=== PATIENT | female | born 1940 | race Caucasian/White ===

== ENCOUNTER → 2021-08-03 09:20 | Outpatient (BNVA) | payer MEDICARE, SELFPAY | PROVIDERS: PCP Nurse Practitioner Family; Visit Provider Internal Medicine Pulmonary Disease | DX: R06.00 Dyspnea, unspecified (principal); I27.22 Pulmonary hypertension due to left heart disease; I48.20 Chronic atrial fibrillation, unspecified; I50.33 Acute on chronic diastolic (congestive) heart failure; I10 Essential (primary) hypertension; M25.641 Stiffness of right hand, not elsewhere classified; M25.642 Stiffness of left hand, not elsewhere classified; J84.9 Interstitial pulmonary disease, unspecified; Z99.81 Dependence on supplemental oxygen; E78.5 Hyperlipidemia, unspecified | CPT/HCPCS: 36415; 73130; 85651; 86225; 86235; 99214 ==

== ENCOUNTER 2021-08-22 07:54 | Inpatient (IN) | payer MEDICARE, SELFPAY ==
[2021-08-22] VITALS (29 sets, daily range): BP systolic 102–146; BP diastolic 61–90; PULSE 72–126; RESP 18–33; TEMP 36.6; O2SAT 84–97
--- NOTE | 2021-08-22 08:03 | XRR_ITS ---
PROCEDURE INFORMATION: Exam: XR Chest Exam date and time: 08/22/2021 8:14 AM Age: 81 years old Clinical indication: Shortness of breath. TECHNIQUE: Imaging protocol: Radiologic exam of the chest. Views: 1 view. COMPARISON: No relevant prior studies available. FINDINGS: Lungs: There are patchy opacities in the mid and lower right chest suspicious for pneumonia. Possible retrocardiac opacity at the left base. Pleural spaces: No definite pleural effusion. No pneumothorax. Heart/Mediastinum: The heart is enlarged. No gross evidence of pneumomediastinum. Diaphragm: Lucent region over the lower left chest may reflect abdominal contents and undulating diaphragm. A loculated subpulmonic pneumothorax is considered less likely. Bones/joints: Prominent rightward curvature of thoracic spine. No gross fracture. XR/XR chest 1V portable [id number] IMPRESSION: 1. Patchy opacities in the mid and lower right chest suspicious for pneumonia. Possible retrocardiac opacity at the left base. 2. Lucent region over the lower left chest may reflect abdominal contents and undulating diaphragm. A loculated subpulmonic pneumothorax is considered less likely. 3. Cardiomegaly. 4. Recommend CT chest to further assess.
--- NOTE | 2021-08-22 08:04 | ED_ITS ---
HPI - SOB/Dyspnea General: Chief Complaint: Shortness of Breath/Dyspnea Stated Complaint: SOB Time Seen by Provider: 08/22/21 07:57 History of Present Illness: HPI Narrative: 81-year-old with history of CHF presents with shortness of breath. She is most been 4 to 5 L by nasal cannula normally. Upon EMS arrival was desaturating on this and rBiPAP. She denies any chest pain. Does report bilateral lower extremity swelling. Review of Systems Narrative: - CONSTITUTIONAL: Denies weight loss, fever and chills. - HEENT: Denies changes in vision and hearing. - RESPIRATORY: As above - CV: Denies palpitations and CP. - GI: Denies abdominal pain, nausea, vomiting and diarrhea. - : Denies dysuria and urinary frequency. - MSK: Denies myalgia and joint pain. - SKIN: Denies rash and pruritus. - NEUROLOGICAL: Denies headache, weakness, numbness and syncope. - PSYCHIATRIC: Denies suicidal ideation [facility] ED PFSH: Medical History Benign hypertension CHF (congestive heart failure) Chronic atrial fibrillation Hyperlipidemia Venous insufficiency Family History Father Cancer Sister Cancer Dementia Hypertension Brother Dementia Hypertension Son Hypertension Daughter Hypertension Denies family history of Diabetes CAD (coronary artery disease) Clotting disorder Hyperlipidemia Psychiatric illness Chronic kidney disease (CKD) Suicide Anesthesia complication Bleeding disorder Family history of premature coronary artery disease Lung disease Stroke Social History Smoking and tobacco status: never smoked Alcohol intake: never Physical Exam Narrative: EXAM NARRATIVE: - GENERAL: Alert and oriented x 3. No acute distress. Well-nourished. - EYES: EOMI. Anicteric. - HENT: Atraumatic, no C-spine tenderness. Moist mucous membranes. No scleral icterus. No cervical lymphadenopathy. - LUNGS: On BiPAP, bilateral wheezes and crackles No accessory muscle use. Equal lung sounds bilaterally. No respiratory distress. - CARDIOVASCULAR: Regular rate and rhythm. No murmur. No JVD. - ABDOMEN: Soft, non-tender and non-distended. Negative CVA tenderness bi laterally, no rebound or guarding, negative Devine sign. No palpable masses. - EXTREMITIES: +1 bilateral lower extremity edema. Non-tender. - SKIN: No rashes or lesions. Warm. - NEUROLOGIC: No meningismus or focal neurological deficits. CN II-XII grossly intact. - PSYCHIATRIC: Cooperative. Appropriate mood and affect. Course Vital Signs: Vital signs: Vital Signs Temperature 97.9 F 08/22/21 08:14 Pulse Rate 97 08/22/21 11:30 Respiratory Rate 29 H 08/22/21 11:27 Blood Pressure 118/64 08/22/21 11:27 Pulse Oximetry 92 08/22/21 11:30 MDM - SOB/Dyspnea Medical Decision Making 81-year-old presents due to shortness of breath. 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 Provided with albuterol steroids and Lasix with some improvement. Initial x-ray is concerning for possible pneumothorax versus abdominal contents in the abdomen however CT scan does not reveal either of days. There is however significant amount of pulmonary edema. Patient is saturating well on BiPAP. BNP is elevated. EKG and troponin do not reveal any sign of acute ischemia or other acute abnormality. Remainder of lab work unremarkable. CT scan also revealed some pulmonary renal masses for which follow-up was recommended. Remainder of lab work and imaging reviewed. Discussed with hospitalist and they agreed patient would benefit from admission. Patient admitted in stable con dition. Further evaluation management per hospitalist team. Lab Data : 08/22/21 09:11 08/22/21 09:45 Labs/Radiology: Radiology Impressions Chest X-Ray 08/22/21 08:03 IMPRESSION: 1. Patchy opacities in the mid and lower right chest suspicious for pneumonia. Possible retrocardiac opacity at the left base. 2. Lucent region over the lower left chest may reflect abdominal contents and undulating diaphragm. A loculated subpulmonic pneumothorax is considered less likely. 3. Cardiomegaly. 4. Recommend CT chest to further assess. ADDENDUM: 08/22/21913 Findings discussed with Karthik Munoz at 08/22/2021 9:11 AM CDT. Chest CTA 08/22/21 09:12 IMPRESSION: 1. No pulmonary embolus. 2. Extensive ground-glass opacity in the chest bilaterally most prominent in the mid to lower chest with a few regions of more confluent airspace opacity. There is interlobular septal thickening. Considerations include pulmonary edema, interstitial lung disease or, possibly, pneumonia (including COVID 19 pneumonia). Favor pulmonary edema. 3. Cardiomegaly with small bilateral pleural effusions and coronary artery disease. 4. Mediastinal and bilateral hilar lymphadenopathy. 5. Solid pulmonary nodules measure up to 5.7 mm. As per Fleischner Society 2017 guidelines for follow-up and management of pulmonary nodules: For patients at low risk (minimal or absent history of smoking and of other known risk factors), no routine follow-up. For patient at high risk (history of smoking or of other known risk factors), recommend optional CT at 12 months. 6. Cholelithiasis without definite gallbladder wall thickening. Possible stone in the distal common bile duct measuring 3.5 mm. The common bile duct appears mildly dilated measuring 6.6 mm. Recommend ultrasound of clinically warranted. 7. Indeterminate left renal mass. Recommend nonemergent MRI of the abdomen renal mass protocol with and without contrast to further assess. 8. Coarse calcifications within the proximal abdominal aorta with at least 50% narrowing. The aorta is not opacified. Laboratory Results WBC 10.5 10^3/uL (4.0-10.0) H 08/22/21 09:11 RBC 4.57 10^6/uL (4.1-5.3) 08/22/21 09:11 Hgb 13.5 g/dL (11.5-15.3) 08/22/21 09:11 Hct 39.1 % (37.0-47.0) 08/22/21 09:11 MCV 85.6 fl (81-99) 08/22/21 09:11 MCH 29.5 pg (28.0-34.0) 08/22/21 09:11 MCHC 34.5 g/dL (30.0-36.0) 08/22/21 09:11 RDW 15.3 % (12.1-15.1) H 08/22/21 09:11 Plt Count 310 10^3/cmm (130-400) 08/22/21 09:11 MPV 8.7 fL (7.4-10.4) 08/22/21 09:11 Neut % (Auto) 83.0 % 08/22/21 09:11 Lymph % (Auto) 7.9 % 08/22/21 09:11 Alpine % (Auto) 7.1 % 08/22/21 09:11 Eos % (Auto) 0.7 % 08/22/21 09:11 Baso % (Auto) 0.9 % 08/22/21 09:11 Neut # (Auto) 8.76 10^3/uL (1.8-7.7) H 08/22/21 09:11 Lymph # (Auto) 0.8 10^3/uL (0.8-4.8) 08/22/21 09:11 Alpine # (Auto) 0.8 10^3/uL (0.2-0.9) 08/22/21 09:11 Eos # (Auto) 0.1 10^3/uL (0.0-0.8) 08/22/21 09:11 Baso # (Auto) 0.1 10^3/uL (0.0-0.1) 08/22/21 09:11 Nucleated RBC % (auto) 0 % 08/22/21 09:11 Nucleated RBCs # 0.0 /100WBC 08/22/21 09:11 D-Dimer 0.46 ug/mIFEU (0-0.59) 08/22/21 09:45 Specimen Type Arterial 08/22/21 08:15 Sample Site Radial, left 08/22/21 08:15 ABG pH 7.50 (7.35-7.45) H 08/22/21 08:15 ABG pCO2 30.3 mmHg (35-45) L 08/22/21 08:15 ABG pO2 89.5 mmHg (80.0-100.0) 08/22/21 08:15 ABG HCO3 23.5 mmol/L (22-26) 08/22/21 08:15 ABG O2 Saturation 98.5 08/22/21 08:15 ABG Base Excess 1.1 mmol/L (-2.0-2.0) 08/22/21 08:15 Aung Test Pos 08/22/21 08:15 A-a O2 Gradient 38.8 mmHg (5-10) H 08/22/21 08:15 Hematocrit 42.3 % (37-47) 08/22/21 08:15 Hgb O2 Saturation 97.5 % (95-100) 08/22/21 08:15 Carboxyhemoglobin 1.0 %THgb (0.4-20.1) 08/22/21 08:15 Methemoglobin 0.0 % (0.4-1.5) L 08/22/21 08:15 Total Hemoglobin 13.8 g/dL (12-16) 08/22/21 08:15 Sodium 144.0 mmol/L (131-143) H 08/22/21 08:15 Potassium 3.7 mmol/L (3.5-5.0) 08/22/21 08:15 Glucose 121.0 mg/dL (70-115) H 08/22/21 08:15 Ionized Calcium 1.2 mmol/L (1.1-1.4) 08/22/21 08:15 O2 Delivery Device Bipap 08/22/21 08:15 FiO2 60.0 % 08/22/21 08:15 Epic Cadence Analyst ID Cak 08/22/21 08:15 Sodium 140 mmol/L (136-145) 08/22/21 09:45 Potassium 3.5 mmol/L (3.5-5.1) 08/22/21 09:45 Chloride 102 mmol/L (98-107) 08/22/21 09:45 Carbon Dioxide 25 mmol/L (22-29) 08/22/21 09:45 Anion Gap 16.5 (5-19) 08/22/21 09:45 BUN 11 mg/dL (8-23) 08/22/21 09:45 Creatinine 0.8 mg/dL (0.5-0.9) 08/22/21 09:45 GFR Calculation Not Reportable 08/22/21 09:45 Glucose 123 mg/dL (65-115) H 08/22/21 09:45 Calculated Osmolality 291 mOsm/kg (285-295) 08/22/21 09:45 Calcium 8.6 mg/dL (8.5-10.5) 08/22/21 09:45 Total Bilirubin 0.7 mg/dL (0.15-1.2) 08/22/21 09:45 AST 11 U/L (0-32) 08/22/21 09:45 ALT 8 U/L (0-33) 08/22/21 09:45 Alkaline Phosphatase 112 IU/L (35-105) H 08/22/21 09:45 Troponin T Baseline 14 ng/L (0-10) H 08/22/21 09:45 NT-Pro-B Natriuret Pep 2132 pg/mL (0-450) H 08/22/21 09:45 Total Protein 7.0 g/dL (6.6-8.7) 08/22/21 09:45 Albumin 3.7 g/dL (3.5-5.2) 08/22/21 09:45 Globulin 3.3 g/dL (1.3-4.6) 08/22/21 09:45 SARS-CoV-2 Ag (Rapid) Negative (Negative) 08/22/21 08:39 EKG Data EKG 1: Other EKG Comments: A. fib with RVR, rate of 116, no sign of acute ischemia or other acute abnormality. Discharge Plan Discharge Condition: Stable Prescriptions: No Action losartan 25 mg tablet 25 mg PO DAILY 0RF Eliquis 5 mg tablet 5 mg PO BID 0RF atorvastatin 10 mg tablet 10 mg PO DAILY 0RF furosemide 40 mg tablet 40 mg PO BID 0RF potassium chloride 10 mEq capsule, extended release 10 meq PO BID 0RF diltiazem HCl [Tiazac] 180 mg capsule,extended release 24 hr 180 mg PO BID Qty: 180 3RF metoprolol succinate 25 mg tablet extended release 24 hr 25 mg PO DAILY Qty: 90 3RF Mucinex Fast-Max Chest-Congest 100 mg/5 mL Liquid 200 mg PO Q4H PRN (Reason: Congestion) 0RF garlic 500 mg Capsule 500 mg PO DAILY 0RF ferrous sulfate 325 mg (65 mg iron) tablet 325 mg PO BID 0RF Women's Probiotic 25B cell-25B cell-50 mg Capsule 1 cap PO DAILY 0RF Referrals: Elis Julian [Primary Care Provider] - Coding Level of Care Code ED Safety Counselor for Chg Xander
--- NOTE | 2021-08-22 08:04 | ECG_ITS ---
[facility] Test Date: 2021-08-22 Pat Name: Karyn Nieto Department: Room: Gender: Female Business Change Manager: : 1940 Requested By: Karthik Munoz Order Number: [id number] Flaca MD: Filemon Collazo M.D. Measurements Intervals [place] Rate: 116 P: [place]: QRS: -25 QRSD: 90 T: 150 QT: 312 QTc: 434 Interpretive Statements ATRIAL FIBRILLATION WITH RAPID VENTRICULAR RESPONSE VOLTAGE CRITERIA FOR LVH [MEETS CRITERIA IN ONE OF: R(aVL), S(V1), R(V5), R(V5/V6)+S(V1)] POSSIBLE ANTERIOR MYOCARDIAL INFARCTION , PROBABLY OLD [30 ms Q WAVE IN V3/V4, OR R < 0.2 mV IN V4] MODERATE T-WAVE ABNORMALITY, CONSIDER LATERAL ISCHEMIA [-0.1+ mV T-WAVE IN I/aVL/V5/V6] No previous ECG available for comparison Electronically Signed On 08-22-2021 12:26:50 CDT by Filemon Collazo M.D. [id number]
--- NOTE | 2021-08-22 08:10 | PC.NURSE ---
PT PLACED ON CONTINUOUS NIBP, SPO2, AND CM
[2021-08-22] MEDS: ipratropium-albuterol 3 mL Neb INHALATION ×3 (08:14→20:46)
[2021-08-22 08:27] LABS: ABG PCO2 30.3 mmHg (35-45); Alveolar-Arterial Oxygen Gradi 38.8 mmHg (5-10); Arterial Blood Gas Hematocrit 42.3 % (37-47); Base Excess ABG 1.1 mmol/L (-2.0-2.0); Blood Gas Allen Test Pos; Blood Gas Operator Identificat CAK; Blood Gas Sample Site Radial, left; Blood Gas Sample Type Arterial; HCO3 ABG 23.5 mmol/L (22-26); HGB O2 Sat 97.5 % (95-100); Ionized Calcium Level - ABG 1.2 mmol/L (1.1-1.4); Oxygen Device BIPAP; Oxygen Saturation ABG 98.5; PO2 ABG 89.5 mmHg (80.0-100.0); Potassium Level - ABG 3.7 mmol/L (3.5-5.0); Total Hemoglobin 13.8 g/dL (12-16)
[2021-08-22] MEDS: dilTIAZem 5 mg/mL SDV 5 mL 20 MG IVP (08:27)
[2021-08-22 09:06] LABS: SARS Covid-2 Antigen Negative (Negative)
--- NOTE | 2021-08-22 09:12 | CTR_ITS ---
PROCEDURE INFORMATION: Exam: CTA Chest With Contrast Exam date and time: 08/22/2021 11:13 AM Age: 81 years old Clinical indication: Shortness of breath. Pneumothorax versus abdominal contents in the chest cavity. TECHNIQUE: Imaging protocol: Computed tomographic angiography of the chest with contrast. 3D rendering (Not supervised by radiologist): MIP and/or 3D reconstructed images were created by the technologist. Radiation optimization: All CT scans at this facility use at least one of these dose optimization techniques: automated exposure control; mA and/or kV adjustment per patient size (includes targeted exams where dose is matched to clinical indication); or iterative reconstruction. Contrast material: OMNI 350; Contrast volume: 73 ml; Contrast route: INTRAVENOUS (IV); COMPARISON: CR (CHEST, ) 08/22/2021 8:14 AM RADIATION DOSE METRICS: Total DLP (mGy-cm): 507.14 FINDINGS: Pulmonary arteries: No pulmonary embolus. Aorta: No thoracic aortic aneurysm. Lungs: There is extensive ground-glass opacity in the chest bilaterally most prominent in the mid to lower chest with a few regions of more confluent airspace opacity. There is interlobular septal thickening. Considerations include pulmonary edema, interstitial lung disease or, possibly, pneumonia (including COVID 19 pneumonia). Solid pulmonary nodule in the right middle lobe measuring 4 mm (image 207). Solid pulmonary nodule in the right middle lobe measuring 5.7 mm (image 199). Pleural spaces: Small bilateral pleural effusions. No pneumothorax. Heart: The heart is enlarged. Coronary arterial calcifications are noted. No pericardial effusion. Lymph nodes: A right pretracheal lymph node measures 1.6 x 2.3 cm. A left pretracheal lymph node measures 1.4 x 1.1 cm. A left hilar lymph node measures 1.4 x 2.9 cm. A right hilar lymph node measures 1.5 x 2.2 cm. Diaphragm: No hiatal hernia. Gallbladder and bile ducts: Cholelithiasis without definite gallbladder wall thickening. Possible stone in the distal common bile duct measuring 3.5 mm. The common bile duct appears mildly dilated measuring 6.6 mm. Recommend ultrasound of clinically warranted. Indeterminate left renal mass measuring 2.5 x 4.3 cm. There are coarse calcifications within the proximal abdominal aorta with at least 50% narrowing. The aorta is not opacified. Bones/joints: Prominent rightward curvature of the thoracolumbar spine. No acute fracture is identified. Soft tissues: No significant subcutaneous soft tissue swelling CT/CT angio chest PE protcl [id number] IMPRESSION: 1. No pulmonary embolus. 2. Extensive ground-glass opacity in the chest bilaterally most prominent in the mid to lower chest with a few regions of more confluent airspace opacity. There is interlobular septal thickening. Considerations include pulmonary edema, interstitial lung disease or, possibly, pneumonia (including COVID 19 pneumonia). Favor pulmonary edema. 3. Cardiomegaly with small bilateral pleural effusions and coronary artery disease. 4. Mediastinal and bilateral hilar lymphadenopathy. 5. Solid pulmonary nodules measure up to 5.7 mm. As per Fleischner Society 2017 guidelines for follow-up and management of pulmonary nodules: For patients at low risk (minimal or absent history of smoking and of other known risk factors), no routine follow-up. For patient at high risk (history of smoking or of other known risk factors), recommend optional CT at 12 months. 6. Cholelithiasis without definite gallbladder wall thickening. Possible stone in the distal common bile duct measuring 3.5 mm. The common bile duct appears mildly dilated measuring 6.6 mm. Recommend ultrasound of clinically warranted. 7. Indeterminate left renal mass. Recommend nonemergent MRI of the abdomen renal mass protocol with and without contrast to further assess. 8. Coarse calcifications within the proximal abdominal aorta with at least 50% narrowing. The aorta is not opacified.
[2021-08-22 09:14] LABS: Basophils # 0.1 10^3/uL (0.0-0.1); Basophils % 0.9 %; Eosinophils # 0.1 10^3/uL (0.0-0.8); Eosinophils % 0.7 %; Hematocrit 39.1 % (37.0-47.0); Hemoglobin 13.5 g/dL (11.5-15.3); Lymphocytes # 0.8 10^3/uL (0.8-4.8); Lymphocytes % 7.9 %; Mean Corpuscular HGB Conc 34.5 g/dL (30.0-36.0); Mean Corpuscular Hemoglobin 29.5 pg (28.0-34.0); Mean Corpuscular Volume 85.6 fl (81-99); Mean Platelet Volume 8.7 fL (7.4-10.4); Monocytes # 0.8 10^3/uL (0.2-0.9); Monocytes % 7.1 %; Neutrophils # 8.76 10^3/uL (1.8-7.7); Nucleated Red Blood Cells % 0 %; Platelet Count 310 10^3/cmm (130-400); Red Blood Count 4.57 10^6/uL (4.1-5.3); Red Cell Distribution Width 15.3 % (12.1-15.1); White Blood Count 10.5 10^3/uL (4.0-10.0)
[2021-08-22 10:23] LABS: D Dimer 0.46 ug/mIFEU (0-0.59)
[2021-08-22 10:31] LABS: Troponin(5th) Baseline 14 ng/L (0-10)
[2021-08-22 10:34] LABS: Alanine Aminotransferase 8 U/L (0-33); Albumin Level 3.7 g/dL (3.5-5.2); Alkaline Phosphatase 112 IU/L (35-105); Anion Gap 16.5 (5-19); Aspartate Amino Transferase 11 U/L (0-32); Blood Urea Nitrogen 11 mg/dL (8-23); Calcium 8.6 mg/dL (8.5-10.5); Carbon Dioxide 25 mmol/L (22-29); Chloride 102 mmol/L (98-107); Globulin 3.3 g/dL (1.3-4.6); Glucose 123 mg/dL (65-115); NT Pro B Type Natriuretic Pept 2132 pg/mL (0-450); Osmolality Calculated 291 mOsm/kg (285-295); Potassium 3.5 mmol/L (3.5-5.1); Sodium 140 mmol/L (136-145); Total Bilirubin 0.7 mg/dL (0.15-1.2)
[2021-08-22] MEDS: iohexol 350 mg/mL 100 mL Btl IV (11:17)
[2021-08-22] MEDS: FUROsemide 10 mg/mL SDV 4mL 40 MG IVP ×2 (11:53→22:02)
--- NOTE | 2021-08-22 12:45 | PC.NURSE ---
ADMITTING PHYSICIAN GAVE VERBAL ORDERS TO SKIP 1240 40MG DOSE OF FUROSEMIDE DUE TO PRIOR ADMINISTRATION OF SAME DOSE AT 1150
--- NOTE | 2021-08-22 13:11 | P.HP_ITS ---
Providers/Chief Complaint Primary Care Provider: Elis Julian Chief Complaint: SOB History of Present Illness Karyn Nieto is a 81 year old female with past medical history of group 2 pulmonary hypertension, diastolic congestive heart failure, chronic hypoxic respiratory failure, on home 4 L oxygen, atrial fibrillation, hyperlipidemia who follows up with cardiology and pulmonology as an outpatient came from home today because of worsening shortness of breath since yesterday. As per patient's daughter her oxygen requirements have been going up for last 2 days. Yesterday she required up to 6 L. Today she was not able to control her breath even on 6 L so she came to the ER. Family denies any changes in medications, sick contac ts. States mild cough. Have not noticed any palpitations at home. Denies any chest pain. In the ER was found to be in atrial fibrillation with rapid ventricular response along with hypoxia for which she was placed on a BiPAP. Examination patient is awake and alert, sitting up comfortably in bed on BiPAP with heart rate running in 130s, saturating more than 92%. Review of Systems General: Reports: ROS unobtainable due to medical condition Medications/Allergies Home Medications Medication Instructions Recorded Confirmed Last Taken Type apixaban 5 mg tablet (Eliquis) 5 mg PO BID 05/08/19 08/22/21 08/21/21 History atorvastatin 10 mg tablet 10 mg PO DAILY tab 05/08/19 08/22/21 08/21/21 History losartan 25 mg tablet 25 mg PO DAILY 05/08/19 08/22/21 08/21/21 History diltiazem HCl 180 mg capsule,24 180 mg PO BID #180 cap 11/07/19 08/22/21 08/21/21 Rx hr,extended release (Tiazac) furosemide 40 mg tablet 40 mg PO BID tab 11/07/19 08/22/21 08/21/21 History potassium chloride 10 mEq 10 meq PO BID cap 11/07/19 08/22/21 08/21/21 History capsule,extended release metoprolol succinate 25 mg 25 mg PO DAILY #90 tab 09/01/20 08/22/21 08/21/21 Rx tablet,extended release 24 hr Lactobacillus 25 billion 1 cap PO DAILY 08/22/21 08/22/21 08/21/21 History cell-Bifido 25 billion [id number] capsule (Women's Probiotic) ferrous sulfate 325 mg (65 mg 325 mg PO BID 08/22/21 08/22/21 08/21/21 History iron) tablet garlic 500 mg capsule 500 mg PO DAILY 08/22/21 08/22/21 08/21/21 History guaifenesin 100 mg/5 mL oral 200 mg PO Q4H PRN 08/22/21 08/22/21 08/21/21 History liquid (Mucinex Fast-Max Chest Congestion) Allergies Allergy/AdvReac Type Severity Reaction Status Date / Time No Known Allergies Allergy Verified 08/22/21 09:38 PFSH Acute PFSH: Medical History (Updated 08/22/21 @ 13:14 by Lon Floyd MD) Benign hypertension CHF (congestive heart failure) Chronic atrial fibrillation Hyperlipidemia Respiratory failure Stiffness of joints of both hands Venous insufficiency World Health Organization group 2 pulmonary arterial hypertension Family History Father Cancer Sister Cancer Dementia Hypertension Brother Dementia Hypertension Son Hypertension Daughter Hypertension Denies family history of Diabetes CAD (coronary artery disease) Clotting disorder Hyperlipidemia Psychiatric illness Chronic kidney disease (CKD) Suicide Anesthesia complication Bleeding disorder Family history of premature coronary artery disease Lung disease Stroke Social History Smoking and tobacco status: never smoked Alcohol intake: never Vitals/I&O/Wt Last Vital Signs Temp 97.9 F 08/22/21 08:14 Pulse 97 08/22/21 11:30 Resp 29 H 08/22/21 11:27 BP 118/64 08/22/21 11:27 Pulse Ox 92 08/22/21 11:30 Physical Exam Narrative: General: No acute distress, AO x3, on BiPAP ventilation HEENT: PERRLA, pupils bilaterally equal and reactive Chest: Bilateral bronchial breath sounds over the lung beckman, fine crackles present bilaterally lower zone, occasional rhonchi over the lung field equal good air entry bilaterally CVS: S1-S2 r irregularly irregular, pansystolic murmur at fourth intercostal parasternal left, tachycardia, elevated JVD, no gallops, no rubs Abdomen: Soft, nontender, no organomegaly, bowel sounds present Neuro: No focal deficits, no facial deformity, AO x3, power 5/5 in all limbs Data : 08/22/21 09:11 08/22/21 09:45 A&P Assessment and plan (1) Acute and chronic respiratory failure with hypoxia: Most likely secondary to acute decompensated diastolic heart failure. BiPAP ventilation. Keep saturation over 88%. DuoNebs every 6 hour, budesonide twice daily. Infectious less likely. Check sputum culture, urine Legionella, bacterial antigen, urinalysis, MRSA swab, COVID-19 swab. Hold off on antibiotics for now. Hold off on steroids for now. Status: Acute (2) CHF (congestive heart failure): Cannot find echo in the system. As per pulmonology note last echocardiogram showed diastolic dysfunction, severe TR and pulmonary artery pressures of 65 to 70 mmHg IV Lasix 40 mg twice daily. Strict input output charting, daily weights. Graham catheterization. Fluid restriction up to 1500 cc. Echocardiogram. Cycle troponins Status: Acute Qualifiers: Heart failure type: diastolic Heart failure chronicity: acute on chronic Qualified Code(s): I50.33 - Acute on chronic diastolic (congestive) heart failure (3) Atrial fibrillation with rapid ventricular response: Currently rapid ventricular response. Start on Cardizem drip. Which to oral Cardizem 30 mg every 6 hourly for now. Will try to wean Cardizem drip and uptitrate oral Cardizem. Continue with home dose of metoprolol 25 mg succinate daily. Continue with anticoagulation with Eliquis 5 mg twice daily. Status: Acute (4) World Health Organization group 2 pulmonary arterial hypertension: Status: Acute Plan Check iron panel, TSH, vitamin B12, folate, A1c, lipid panel. Hypertension: Goal blood pressure less than 140/90 mmHg Continue with home dose of metoprolol. Hold off on losartan for now. Analgesia: Tylenol as needed Glycemic control: Not needed Nutrition: Cardiac diet, fluid restriction up to 1500 cc CODE STATUS: Discussed in detail with patient and daughter at bedside. DNR/DNI. PUD prophylaxis: Protonix DVT prophylaxis: Eliquis will suffice as DVT prophylaxis Admit to CSU. Attestations Medical Necessity Statement*: Admission for more than 2 midnights for management of acute decompensated diastolic heart failure, A. fib with rapid ventricular response Time Spent in Patient Care: Greater than 35 minutes Coding Level of Care Code Acute Civil Engineering Professional for Azael Fwtian Diagnoses Acute and chronic respiratory failure with hypoxia J96.21 CHF (congestive heart failure) I50.33 Heart failure type: diastolic Heart failure chronicity: acute on chronic Atrial fibrillation with rapid ventricular response I48.91 World Health Organization group 2 pulmonary arterial hypertension I27.22
[2021-08-22] MEDS: dilTIAZem 30 mg Tablet PO (13:36)
[2021-08-22 13:39] LABS: Thyroid Stimulating Hormone 3.93 uIU/mL (0.27-4.20)
[2021-08-22 13:40] LABS: Procalcitonin 0.05 ng/mL (0-0.5)
[2021-08-22 13:54] LABS: Add Urine Culture? Yes; Add Urine Microscopic? YES; Bacteria Urine 4+ /hpf; Bilirubin Urine Neg (Negative); Blood Urine 2+ (Negative); Glucose Urine UA Norm (Normal); Ketones Urine Negative (Negative); Leukocyte Esterase Urine 2+ (Negative); Nitrate Urine Negative (Negative); Protein Urine Neg (Negative); RBC Urine 0-4 /hpf (0-2); Specific Gravity, Urine 1.005 (1.005-1.030); Urine Appearance Hazy (CLEAR); Urine Color Straw (Yellow); Urobilinogen Urine Norm (Negative); WBC Urine 25-40 /hpf (0-5); pH Urine 6.5 (5-7)
[2021-08-22 14:14] LABS: Adenovirus Not Detected (NOT DETECT); Chlamydia Pneumoniae Not Detected (NOT DETECT); Coronavirus 229E,HKU1,NL63,OC4 Not Detected (NOT DETECT); Human Metapneumovirus Not Detected (NOT DETECT); Human Rhinovirus/Enterovirus Not Detected (NOT DETECT); Influenza A Not Detected (NOT DETECT); Influenza A H1 Not Detected (NOT DETECT); Influenza A H1-2009 Not Detected (NOT DETECT); Influenza A H3 Not Detected (NOT DETECT); Influenza B Not Detected (NOT DETECT); Mycoplasma Pneumoniae Not Detected (NOT DETECT); Parainfluenza Virus Type 1 Not Detected (NOT DETECT); Parainfluenza Virus Type 2 Not Detected (NOT DETECT); Parainfluenza Virus Type 3 Not Detected (NOT DETECT); Parainfluenza Virus Type 4 Not Detected (NOT DETECT); Respiratory Syncytial Virus A Not Detected (NOT DETECT); Respiratory Syncytial Virus B Not Detected (NOT DETECT); SARS-COV-2 Not Detected (NOT DETECT)
[2021-08-22] MEDS: cefTRIAXone 1,000 MG in sodium chloride 0.9% (plus) 50 ML 100 MG IV (17:41)
[2021-08-22] MEDS: dilTIAZem 30 mg Tablet 60 MG PO ×2 (17:43→20:55)
[2021-08-22] MEDS: ferrous sulfate EC 325 mg Tablet PO (17:43)
[2021-08-22] MEDS: potassium chloride ER 10 mEq Tablet PO (17:44)
[2021-08-22] MEDS: apixaban 5 mg Tablet PO (17:44)
[2021-08-22] MEDS: budesonide 0.5 mg/2 mL Neb INHALATION (20:46)
[2021-08-23] VITALS (19 sets, daily range): BP systolic 100–138; BP diastolic 54–84; PULSE 63–112; RESP 16–26; TEMP 36.6–36.8; O2SAT 87–98
[2021-08-23] MEDS: ipratropium-albuterol 3 mL Neb INHALATION ×4 (02:32→20:31)
[2021-08-23 04:46] LABS: Basophils % 0.1 %; Hematocrit 36.5 % (37.0-47.0); Hemoglobin 12.4 g/dL (11.5-15.3); Lymphocytes # 0.4 10^3/uL (0.8-4.8); Lymphocytes % 3.6 %; Mean Corpuscular Hemoglobin 28.8 pg (28.0-34.0); Mean Corpuscular Volume 84.7 fl (81-99); Mean Platelet Volume 8.8 fL (7.4-10.4); Monocytes # 0.3 10^3/uL (0.2-0.9); Monocytes % 2.7 %; Neutrophils # 9.25 10^3/uL (1.8-7.7); Neutrophils % 93.2 %; Nucleated Red Blood Cells % 0 %; Platelet Count 303 10^3/cmm (130-400); Red Blood Count 4.31 10^6/uL (4.1-5.3); Red Cell Distribution Width 15.4 % (12.1-15.1); White Blood Count 9.9 10^3/uL (4.0-10.0)
[2021-08-23 05:04] LABS: Alanine Aminotransferase 7 U/L (0-33); Albumin Level 3.6 g/dL (3.5-5.2); Alkaline Phosphatase 93 IU/L (35-105); Anion Gap 15.7 (5-19); Aspartate Amino Transferase 10 U/L (0-32); Blood Urea Nitrogen 13 mg/dL (8-23); Calcium 8.9 mg/dL (8.5-10.5); Carbon Dioxide 25 mmol/L (22-29); Chloride 102 mmol/L (98-107); Cholesterol 82 mg/dL (0-200); Globulin 2.8 g/dL (1.3-4.6); Glucose 164 mg/dL (65-115); HDL Cholesterol 41 mg/dL (60-100); LDL Cholesterol Calculated 34 mg/dL (50-129); Magnesium 2.1 mg/dL (1.7-2.3); Osmolality Calculated 292 mOsm/kg (285-295); Phosphorus 4.6 mg/dL (2.5-4.5); Potassium 3.7 mmol/L (3.5-5.1); Sodium 139 mmol/L (136-145); Total Bilirubin 0.5 mg/dL (0.15-1.2); Total Protein 6.4 g/dL (6.6-8.7); Triglycerides 36 mg/dL (0-150); VLDL Cholestrol Calculation 7 mg/dL (0-30)
[2021-08-23 05:05] LABS: Estmated Average Glucose 114; Hemoglobin A1C 5.6 % (4.0-6.0)
[2021-08-23] MEDS: budesonide 0.5 mg/2 mL Neb INHALATION ×2 (08:22→20:31)
[2021-08-23] MEDS: dilTIAZem 30 mg Tablet 60 MG PO (08:44)
[2021-08-23] MEDS: atorvastatin 40 mg Tablet 20 MG PO (08:45)
[2021-08-23] MEDS: apixaban 5 mg Tablet PO ×2 (08:45→17:46)
[2021-08-23] MEDS: pantoprazole DR 40 mg Tablet PO (08:46)
[2021-08-23] MEDS: ferrous sulfate EC 325 mg Tablet PO ×2 (08:46→17:46)
[2021-08-23] MEDS: potassium chloride ER 10 mEq Tablet PO ×2 (08:46→17:46)
[2021-08-23] MEDS: metoprolol succinate ER (24 HR) 25 mg Tablet PO (08:46)
[2021-08-23] MEDS: dilTIAZem 30 mg Tablet PO (10:25)
[2021-08-23] MEDS: FUROsemide 10 mg/mL SDV 4mL 40 MG IVP ×2 (10:25→22:01)
[2021-08-23] MEDS: dilTIAZem 5 mg/mL SDV 5 mL 10 MG IVP (11:09)
--- NOTE | 2021-08-23 12:31 | USCV_ITS ---
Karyn Nieto Age: 81 Gender: F : 1940 Exam Date: 08/23/2021 15:09 Ordering Phys: Lon Floyd MD Technologist: Angelito Meyer Exam Location: [facility] [place] Indication: chf BP: 95 / 60 HR: 82 Rhythm: Sinus Technical Quality: Adequate MEASUREMENTS (Male / Female) Normal Values 2D ECHO LV Diastolic Diameter PLAX 3.6 cm 4.2 - 5.9 / 3.9 - 5.3 cm LV Systolic Diameter PLAX 2.3 cm IVS Diastolic Thickness 1.1 cm 0.6 - 1.0 / 0.6 - 0.9 cm IVS Systolic Thickness 1.3 cm LVPW Diastolic Thickness 1.0 cm 0.6 - 1.0 / 0.6 - 0.9 cm LVPW Systolic Thickness 1.2 cm LVOT Diameter 2.0 cm LV Ejection Fraction 2D Teich 66.3 % LV Ejection Fraction MOD 2C 78.9 % LV Ejection Fraction 2C AL 79.8 % LA Diameter 4.3 cm Aorta at Sinotubular Diameter 1.8 cm IVC Diameter 2.0 cm M-MODE MV E Point Septal Separation 0.7 cm DOPPLER AV Peak Velocity 119.0 cm/s LVOT Peak Velocity 90.0 cm/s AV Area Cont Eq vti 2.5 cm squared AV Area Cont Eq pk 2.3 cm squared MV Area PHT 5.0 cm squared Mitral E to A Ratio 2.2 MV E' Velocity 81.0 cm/s Mitral E to LV E' Septal Ratio 6.0 TR Peak Velocity 408.3 cm/s TR Peak Gradient 66.7 mmHg TV Peak E Velocity 137.0 cm/s Right Atrial Pressure 3.0 mmHg Pulmonary Artery Systolic Pressu 69.7 mmHg PV Peak Velocity 101.0 cm/s FINDINGS Left Ventricle Normal left ventricular cavity size. Mild to moderate left ventricular hypertrophy. Ejection fraction 70%. Grade 2 diastolic dysfunction. No regional wall motion disturbances. Right Ventricle Normal right ventricular size and systolic function. Moderate to severe pulmonary hypertension. Pulmonary artery pressure 70 mmHg. Right Atrium Moderately increased right atrial size. Left Atrium Moderately increased left atrial size. Mitral Valve Structurally normal mitral valve. There is at least moderate mitral regurgitation. No mitral stenosis. Aortic Valve Structurally normal aortic valve without significant sclerosis or stenosis. There is no aortic regurgitation. Tricuspid Valve Structurally normal tricuspid valve. [id number] tricuspid valve regurgitation. Pulmonic Valve Pulmonic valve not well visualized. Pericardium Normal pericardium without effusion. Aorta Normal ascending aorta dimension. IVC Inferior vena cava not visualized. CONCLUSIONS Normal left ventricular cavity size. Mild to moderate left ventricular hypertrophy. Ejection fraction 70%. Grade 2 diastolic dysfunction. No regional wall motion disturbances. Moderately increased right atrial size. Moderately increased left atrial size. Structurally normal mitral valve. There is at least moderate mitral regurgitation. No mitral stenosis. Structurally normal tricuspid valve. [id number] tricuspid valve regurgitation. Normal right ventricular size and systolic function. Moderate to severe pulmonary hypertension. Pulmonary artery pressure [address] Filemon Collazo MD (Electronically Signed) Final Date: 24 August 2021 08:28 S
--- NOTE | 2021-08-23 12:34 | P.PN_ITS ---
Subjective Subjective: No acute events overnight. Patient states he is feeling better.. Currently on 10 L high flow nasal cannula. Could not tolerate BiPAP overnight. Cardizem drip stopped at midnight. Heart rate running between 100 220 currently. Blood pressures well controlled. Documented urine output of 1500 c c. Vitals/I&O/Wt Last Vital Signs Temp 98.0 F 08/23/21 07:58 Pulse 106 H 08/23/21 11:23 Resp 21 H 08/23/21 11:23 BP 123/84 08/23/21 11:23 Pulse Ox 92 08/23/21 11:23 08/22/21 08/23/21 08/23/21 22:59 06:59 14:59 Intake Total 567.750 / 570.000 360 / 360 Output Total 850 / 850 650 / 1500 Balance -282.250 / -280.000 -650 / -930.000 360 / 360 Weight last 48 hrs Weight 51.846 kg Physical Exam Narrative: General: No acute distress, AO x3, on high flow nasal cannula HEENT: PERRLA, pupils bilaterally equal and reactive Chest: Bilateral bronchial breath sounds over the lung beckman, fine crackles present bilaterally lower zone, occasional rhonchi over the lung field equal good air entry bilaterally CVS: S1-S2 r irregularly irregular, pansystolic murmur at fourth intercostal parasternal left, tachycardia, elevated JVD, no gallops, no rubs Abdomen: Soft, nontender, no organomegaly, bowel sounds present Neuro: No focal deficits, no facial deformity, AO x3, power 5/5 in all limbs Urinary Catheter Management: Graham Latex Free: Cath Placed During This Visit: yes Reason for Continuing Indwelling Catheter: Acute Urinary Retention or Obstruction Urinary Catheter Date of Insertion: 08/22/21 Urinary Catheter Time of Insertion: 15:25 Data : 08/23/21 04:15 08/23/21 04:15 Micro: Microbiology 08/22/21 13:01 Urine Culture - Preliminary Urine,Clean Catch Corynebacterium species 08/22/21 13:01 Legionella Urinary Antigen - Final Urine Catheterized 08/22/21 13:01 Bacterial Antigens - Final Urine Kidney 08/22/21 13:58 Blood Culture - Preliminary Blood SPECIMEN COLLECTED 08/22/21 13:50 Blood Culture - Preliminary Blood SPECIMEN COLLECTED A&P Assessment and plan (1) Acute and chronic respiratory failure with hypoxia: Most likely secondary to acute decompensated diastolic heart failure. BiPAP ventilation. Keep saturation over 88%. DuoNebs every 6 hour, budesonide twice daily. Infectious less likely. Check sputum culture, urine Legionella, bacterial antigen, urinalysis, MRSA swab, COVID-19 swab. Hold off on antibiotics for now. Hold off on steroids for now. Status: Acute (2) CHF (congestive heart failure): Cannot find echo in the system. As per pulmonology note last echocardiogram showed diastolic dysfunction, severe TR and pulmonary artery pressures of 65 to 70 mmHg IV Lasix 40 mg twice daily. Strict input output charting, daily weights. Graham catheterization. Fluid restriction up to 1500 cc. Echocardiogram. Cycle troponins Status: Acute Qualifiers: Heart failure type: diastolic Heart failure chronicity: acute on chronic Qualified Code(s): I50.33 - Acute on chronic diastolic (congestive) heart failure (3) Atrial fibrillation with rapid ventricular response: Currently rapid ventricular response. Increase oral Cardizem dose. Digoxin load. Continue with home dose of metoprolol 25 mg succinate daily. Continue with anticoagulation with Eliquis 5 mg twice daily. 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 Hold off on losartan for now. Analgesia: Tylenol as needed Glycemic control: Not needed Nutrition: Cardiac diet, fluid restriction up to 1500 cc CODE STATUS: Discussed in detail with patient and daughter at bedside. DNR/DNI. PUD prophylaxis: Protonix DVT prophylaxis: Eliquis will suffice as DVT prophylaxis Continue CHF care. Plan for day: Increase Cardizem to 90 mg every 6 hourly. We will try to avoid amiodarone. Digoxin load with 250 mcg stat followed by 125 mcg every 6 hourly for 2 doses. Recheck digoxin level at 10 AM tomorrow morning. Continue with aggressive diuresis with Lasix 40 mg twice daily. Try to transition over to oxygen pendant. Patient will benefit from pulmonology consultation when available tomorrow. 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
[2021-08-23] MEDS: digoxin 250 mcg/ml INJ 2 mL IVP (13:30)
[2021-08-23] MEDS: dilTIAZem 30 mg Tablet 90 MG PO ×3 (13:31→20:53)
[2021-08-23] MEDS: lanolin oint 7 gm 1 APPLIC TOPICAL (17:42)
[2021-08-23] MEDS: cefTRIAXone 1,000 MG in sodium chloride 0.9% (plus) 50 ML 100 MG IV (17:42)
[2021-08-23] MEDS: digoxin 250 mcg/ml INJ 2 mL 125 MCG IVP (17:43)
[2021-08-24] VITALS (16 sets, daily range): BP systolic 92–111; BP diastolic 58–65; PULSE 59–91; RESP 18–30; TEMP 36.3–36.8; O2SAT 90–100; BMI 23.1
[2021-08-24] MEDS: ipratropium-albuterol 3 mL Neb INHALATION ×4 (00:03→21:04)
--- NOTE | 2021-08-24 02:30 | PC.NURSE ---
Spoke with regarding patient becoming very anxious, wakes up saying she is short of breath but o2SAts are 97% and lung sound unchanged. Patient admits she feels anxious. Order obtained for one time dose of Xanax.
[2021-08-24] MEDS: digoxin 250 mcg/ml INJ 2 mL 125 MCG IVP (03:10)
[2021-08-24] MEDS: ALPRAZolam 0.5 mg Tablet 0.25 MG PO (03:18)
[2021-08-24] MEDS: acetaminophen 325 mg Tablet 650 MG PO (05:34)
[2021-08-24] MEDS: budesonide 0.5 mg/2 mL Neb INHALATION ×2 (07:55→21:04)
[2021-08-24] MEDS: potassium chloride ER 10 mEq Tablet PO ×2 (08:16→17:51)
[2021-08-24] MEDS: metoprolol succinate ER (24 HR) 25 mg Tablet PO (08:16)
[2021-08-24] MEDS: dilTIAZem 30 mg Tablet 90 MG PO ×4 (08:16→20:48)
[2021-08-24] MEDS: atorvastatin 40 mg Tablet 20 MG PO (08:17)
[2021-08-24] MEDS: pantoprazole DR 40 mg Tablet PO (08:17)
[2021-08-24] MEDS: apixaban 5 mg Tablet PO ×2 (08:17→17:51)
[2021-08-24] MEDS: ferrous sulfate EC 325 mg Tablet PO ×2 (08:17→17:51)
--- NOTE | 2021-08-24 10:25 | P.PN_ITS ---
Subjective Subjective: Patient was seen and examined this morning. She had rough night, was having shortness of breath. Today in the morning, she was seen sitting in the chair, currently on 8 Ls oxygen through pendent. Heart rate is decently controlled, currently she is -1.6 L. Medications: Medication Review Details: Generic Name Dose Route Start Last Admin Trade Name Stevanq PRN Reason Stop Dose Admin Acetaminophen 650 mg 08/22/21 14:42 08/24/21 05:34 Acetaminophen 32 5 Mg Tablet PO 650 mg Q6H PRN Administration Mild/Mod Pain Or Temp >/= 101 Albuterol/Ipratrop ium 3 ml 08/22/21 15:00 08/24/21 07:59 Ipratropium-Albu terol 3 Ml Neb INHALATION 3 ml Q6H.RESPIRATORY S CH Administration Albuterol/Ipratrop ium 3 ml 08/23/21 23:54 08/24/21 00:03 Ipratropium-Albu terol 3 Ml Neb INHALATION 3 ml Q4H.RESPIRATORY P RN Administration SHORTNESS OF JAKOB TH Apixaban 5 mg 08/22/21 18:00 08/24/21 08:17 Apixaban 5 Mg Ta blet PO 5 mg BID EVELIN Administration Atorvastatin Calci um 20 mg 08/23/21 09:00 08/24/21 08:17 Atorvastatin 40 Mg Tablet PO 20 mg DAILY EVELIN Administration Budesonide 0.5 mg 08/22/21 20:00 08/24/21 07:55 Budesonide 0.5 M g/2 Ml Neb INHALATION 0.5 mg BID.RESPIRATORY S CH Administration Diltiazem HCl 90 mg 08/23/21 13:00 08/24/21 08:16 Diltiazem 30 Mg Tablet PO 90 mg QID EVELIN Administration Ferrous Sulfate 325 mg 08/22/21 18:00 08/24/21 08:17 Ferrous Sulfate Ec 325 Mg Tablet PO 325 mg BID EVELIN Administration Furosemide 40 mg 08/22/21 23:00 08/23/21 22:01 Furosemide 10 Mg /Ml Sdv 4ml IVP 40 mg Q12H EVELIN Administration Diltiazem HCl 100 mg/ Dextrose 100 mls @ 0 mls/h r 08/22/21 13:00 08/22/21 21:12 IV Infused .Q0M EVELIN Titration Protocol Per Protocol Ceftriaxone Sodium 1,000 mg/ 50 mls @ 100 mls/ hr 08/22/21 16:45 08/23/21 21:00 Sodium Chloride IV Infused Q24H EVELIN Infusion Protocol Lanolin 1 applic 08/23/21 17:30 08/23/21 17:42 Lanolin Oint 7 G m TOPICAL 1 applic PRN PRN Administration DRYNESS Metoprolol Succina te 25 mg 08/23/21 09:00 08/24/21 08:16 Metoprolol Succi ade Er (24 Hr) 25 Mg Tablet PO 25 mg DAILY EVELIN Administration Pantoprazole Sodiu m 40 mg 08/23/21 09:00 08/24/21 08:[address] 40 Mg Tablet PO 40 mg DAILY EVELIN Administration Potassium Chloride 10 meq 08/22/21 18:00 08/24/21 08:16 Potassium Chlori de Er 10 Meq Table t PO 10 meq BID EVELIN Administration Vitals/I&O/Wt Last Vital Signs Temp 97.4 F L 08/24/21 07:48 Pulse 91 08/24/21 08:03 Resp 20 H 08/24/21 07:59 BP 111/63 08/24/21 07:48 Pulse Ox 100 08/24/21 07:59 08/23/21 08/24/21 08/24/21 22:59 06:59 14:59 Intake Total 50 / 650 120 / 770 120 / 120 Output Total 900 / 900 650 / 1550 Balance -850 / -250 -530 / -780 120 / 120 Weight last 48 hrs Weight 51.936 kg Weight 51.846 kg Physical Exam Const: COMMON NORMALS: patient oriented x3 HENMT: COMMON NORMALS: normocephalic and atraumatic HEAD & SCALP: normocephalic and atraumatic Chest: CHEST: Yes Symmetrical chest wall rise Resp: COMMON NORMALS: clear to auscultation bilaterally EFFORT & INSPECTION: Yes symmetric chest movement AUSCULTATION: clear to auscultation bilaterally Cardio: COMMON NORMALS: regular rate, regular rhythm, S1 normal heart sound present, S2 normal heart sound present, No gallops present (Cardio), No murmurs present (Cardio), No rub (Cardio) and Peripheral pulses 2+ throughout RATE: regular rate RHYTHM: regular rhythm HEART SOUNDS: S1 normal heart sound present and S2 normal heart sound present PERIPHERAL PULSES: Peripheral pulses 2+ throughout GI: COMMON NORMALS: Normal to inspection, nondistended, normoactive bowel sounds present, Soft to palpation, non-tender, No hepatosplenomegaly present and no masses AUSCULTATION: Yes normoactive bowel sounds PALPATION: Yes Soft to palpation and Yes No hepatosplenomegaly present RECTAL EXAM: deferred Extremity: OTHER: 2 + b/l l/e pitting edema Neuro: COMMON NORMALS: patient oriented x3 Urinary Catheter Management: Graham Latex Free: Cath Placed During This Visit: yes Reason for Continuing Indwelling Catheter: Acute Urinary Retention or Obstruction Urinary Catheter Date of Insertion: 08/22/21 Urinary Catheter Time of Insertion: 15:25 Data : 08/23/21 04:15 08/23/21 04:15 Micro: Microbiology 08/22/21 13:01 Urine Culture - Final Urine,Clean Catch Corynebacterium species 08/22/21 13:58 Blood Culture - Preliminary Blood NEGATIVE TO DATE 08/22/21 13:50 Blood Culture - Preliminary Blood NEGATIVE TO DATE 08/22/21 18:30 MRSA Culture - Final Nose A&P Assessment and plan (1) Acute and chronic respiratory failure with hypoxia: Most likely secondary to acute decompensated diastolic heart failure. BiPAP ventilation. Keep saturation over 88%. DuoNebs every 6 hour, budesonide twice daily. Infectious less likely. Check sputum culture, urine Legionella, bacterial antigen, urinalysis, MRSA swab, COVID-19 swab. Hold off on antibiotics for now. Hold off on steroids for now. Status: Acute (2) CHF (congestive heart failure): Cannot find echo in the system. As per pulmonology note last echocardiogram showed diastolic dysfunction, severe TR and pulmonary artery pressures of 65 to 70 mmHg IV Lasix 40 mg twice daily. Strict input output charting, daily weights. Graham catheterization. Fluid restriction up to 1500 cc. Echocardiogram. Cycle troponins Status: Acute Qualifiers: Heart failure chronicity: acute on chronic Heart failure type: diastolic Qualified Code(s): I50.33 - Acute on chronic diastolic (congestive) heart failure (3) Atrial fibrillation with rapid ventricular response: Currently rapid ventricular response. Increase oral Cardizem dose. Digoxin load. Continue with home dose of metoprolol 25 mg succinate daily. Continue with anticoagulation with Eliquis 5 mg twice daily. 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 fib with RVR, low clinical suspicion for pneumonia. MRSA culture negative Blood culture negative Urine Legionella antigen negative Procalcitonin: 0.05 Chest CTA: ?Extensive ground-glass opacity in the chest bilaterally most prominent in the mid to lower chest with a few regions of more confluent airspace opacity. There is interlobular septal thickening. 2D echo: Normal left ventricular cavity size.? Mild to moderate left?ventricular hypertrophy.? Ejection fraction 70%.? Grade 2 diastolic dysfunction.? No regional wall motion disturbances. Moderately increased right atrial size.?Moderately increased left atrial size.Structurally normal mitral valve.? There is at least moderate mitral regurgitation.? No mitral stenosis. Structurally normal tricuspid valve. [id number] tricuspid valve regur gitation. Normal right ventricular size and systolic function.? Moderate ?to severe pulmonary hypertension.? Pulmonary artery pressure 70 ?mmHg. Continue: Lasix 40 IV twice daily DuoNebs Budesonide inhaler Supplemental oxygen as needed Intake output charting Daily weight k>4, mg>2 Continue telemetry monitoring A. fib with RVR: Continue Cardizem and metoprolol, continue Eliquis. Stop digoxin loading, serum digoxin level:2 Heart rate is better controlled Severe pulmonary hypertension: Pulmonary follow-up as an outpatient Hypertension: Goal blood pressure less than 140/90 mmHg Continue with home dose of metoprolol. Hold off on losartan for now. CODE STATUS: AND DVT prophylaxis: Eliquis will be sufficient for DVT prophylaxis Attestations Medical Necessity Statement*: Patient is still in hospital for management of acute on chronic respiratory failure, need for IV diuresis. Time Spent in Patient Care: Greater than 35 minutes (>than 50% of time spent in counselling and/or direct pt care on unit) . 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
--- NOTE | 2021-08-24 10:57 | PC.NURSE ---
0730 patient assisted to sit in chair at bedside tolerated well current: patient continues to sit up in chair with out SOB or pain will continue to monitor
[2021-08-24] MEDS: FUROsemide 10 mg/mL SDV 4mL 40 MG IVP ×2 (11:04→22:13)
[2021-08-24] MEDS: cefTRIAXone 1,000 MG in sodium chloride 0.9% (plus) 50 ML 100 MG IV (17:01)
[2021-08-25] VITALS (22 sets, daily range): BP systolic 98–138; BP diastolic 56–83; PULSE 55–103; RESP 16–31; TEMP 36.8–37.2; O2SAT 66–100
[2021-08-25 03:00] LABS: Basophils % 0.2 %; Eosinophils # 0.1 10^3/uL (0.0-0.8); Eosinophils % 0.5 %; Hematocrit 37.5 % (37.0-47.0); Hemoglobin 12.5 g/dL (11.5-15.3); Lymphocytes # 0.4 10^3/uL (0.8-4.8); Lymphocytes % 3.3 %; Mean Corpuscular HGB Conc 33.3 g/dL (30.0-36.0); Mean Corpuscular Hemoglobin 28.8 pg (28.0-34.0); Mean Corpuscular Volume 86.4 fl (81-99); Mean Platelet Volume 8.9 fL (7.4-10.4); Monocytes % 7.8 %; Neutrophils # 11.43 10^3/uL (1.8-7.7); Neutrophils % 87.7 %; Nucleated Red Blood Cells % 0 %; Platelet Count 280 10^3/cmm (130-400); Red Blood Count 4.34 10^6/uL (4.1-5.3); Red Cell Distribution Width 15.5 % (12.1-15.1)
[2021-08-25 03:14] LABS: Blood Urea Nitrogen 19 mg/dL (8-23); Carbon Dioxide 25 mmol/L (22-29); Chloride 99 mmol/L (98-107); Glucose 107 mg/dL (65-115); Osmolality Calculated 289 mOsm/kg (285-295); Sodium 138 mmol/L (136-145)
[2021-08-25 03:19] LABS: Anion Gap 17.9 (5-19); Potassium 3.9 mmol/L (3.5-5.1)
[2021-08-25] MEDS: ipratropium-albuterol 3 mL Neb INHALATION ×4 (04:05→20:01)
--- NOTE | 2021-08-25 07:42 | PC.NURSE ---
received report, reviewed poc and assumed care of patient. no needs identified at this time
[2021-08-25] MEDS: atorvastatin 40 mg Tablet 20 MG PO (09:03)
[2021-08-25] MEDS: budesonide 0.5 mg/2 mL Neb INHALATION ×2 (09:03→19:53)
[2021-08-25] MEDS: apixaban 5 mg Tablet PO ×2 (09:03→17:27)
[2021-08-25] MEDS: ferrous sulfate EC 325 mg Tablet PO ×2 (09:03→17:27)
[2021-08-25] MEDS: dilTIAZem 60 mg Tablet PO ×3 (09:03→20:36)
[2021-08-25] MEDS: pantoprazole DR 40 mg Tablet PO (09:03)
[2021-08-25] MEDS: potassium chloride ER 10 mEq Tablet PO ×2 (09:03→17:27)
[2021-08-25] MEDS: FUROsemide 10 mg/mL SDV 4mL 40 MG IVP ×2 (09:04→23:28)
--- NOTE | 2021-08-25 09:06 | XRR_ITS ---
PROCEDURE INFORMATION: Exam: XR Chest Exam date and time: 08/25/2021 9:18 AM Age: 81 years old Clinical indication: Shortness of breath; Additional info: SOB TECHNIQUE: Imaging protocol: Radiologic exam of the chest. Views: 1 view. COMPARISON: 1. CR (CHEST, ) 08/22/2021 8:[address] angio chest PE protcl [id number] 08/22/2021 11:13 AM FINDINGS: Lungs: Persistent but decreased ground-glass densities in the right lung, concerning for improving pneumonia versus pulmonary edema. Pleural spaces: No pneumothorax. No pleural effusion. Heart/Mediastinum: The heart is enlarged for size. Bones/joints: Unremarkable. Other findings: The patient is rotated on the radiograph. XR/XR chest 1V portable [id number] IMPRESSION: Persistent but decreased ground-glass densities in the right lung, concerning for improving pneumonia versus pulmonary edema.
--- NOTE | 2021-08-25 09:15 | P.PN_ITS ---
Subjective Subjective: Patient was seen and examined this morning. Slept well last night on BIPAP, Continue to have high supplemental oxygen requirement. Am xray chest : has shown slight improvement in rt sided ground glass opacity. Medications: Medication Review Details: Generic Name Dose Route Start Last Admin Trade Name Stevanq PRN Reason Stop Dose Admin Acetaminophen 650 mg 08/22/21 14:42 08/24/21 05:34 Acetaminophen 32 5 Mg Tablet PO 650 mg Q6H PRN Administration Mild/Mod Pain Or Temp >/= 101 Albuterol/Ipratrop ium 3 ml 08/22/21 15:00 08/24/21 07:59 Ipratropium-Albu terol 3 Ml Neb INHALATION 3 ml Q6H.RESPIRATORY S CH Administration Albuterol/Ipratrop ium 3 ml 08/23/21 23:54 08/24/21 00:03 Ipratropium-Albu terol 3 Ml Neb INHALATION 3 ml Q4H.RESPIRATORY P RN Administration SHORTNESS OF JAKOB TH Apixaban 5 mg 08/22/21 18:00 08/24/21 08:17 Apixaban 5 Mg Ta blet PO 5 mg BID EVELIN Administration Atorvastatin Calci um 20 mg 08/23/21 09:00 08/24/21 08:17 Atorvastatin 40 Mg Tablet PO 20 mg DAILY EVELIN Administration Budesonide 0.5 mg 08/22/21 20:00 08/24/21 07:55 Budesonide 0.5 M g/2 Ml Neb INHALATION 0.5 mg BID.RESPIRATORY S CH Administration Diltiazem HCl 90 mg 08/23/21 13:00 08/24/21 08:16 Diltiazem 30 Mg Tablet PO 90 mg QID EVELIN Administration Ferrous Sulfate 325 mg 08/22/21 18:00 08/24/21 08:17 Ferrous Sulfate Ec 325 Mg Tablet PO 325 mg BID EVELIN Administration Furosemide 40 mg 08/22/21 23:00 08/23/21 22:01 Furosemide 10 Mg /Ml Sdv 4ml IVP 40 mg Q12H EVELIN Administration Diltiazem HCl 100 mg/ Dextrose 100 mls @ 0 mls/h r 08/22/21 13:00 08/22/21 21:12 IV Infused .Q0M EVELIN Titration Protocol Per Protocol Ceftriaxone Sodium 1,000 mg/ 50 mls @ 100 mls/ hr 08/22/21 16:45 08/23/21 21:00 Sodium Chloride IV Infused Q24H EVELIN Infusion Protocol Lanolin 1 applic 08/23/21 17:30 08/23/21 17:42 Lanolin Oint 7 G m TOPICAL 1 applic PRN PRN Administration DRYNESS Metoprolol Succina te 25 mg 08/23/21 09:00 08/24/21 08:16 Metoprolol Succi ade Er (24 Hr) 25 Mg Tablet PO 25 mg DAILY EVELIN Administration Pantoprazole Sodiu m 40 mg 08/23/21 09:00 08/24/21 08:[address] 40 Mg Tablet PO 40 mg DAILY EVELIN Administration Potassium Chloride 10 meq 08/22/21 18:00 08/24/21 08:16 Potassium Chlori de Er 10 Meq Table t PO 10 meq BID EVELIN Administration Vitals/I&O/Wt Last Vital Signs Temp 98.6 F 08/25/21 04:00 Pulse 96 08/25/21 09:04 Resp 24 H 08/25/21 09:04 BP 123/66 08/25/21 07:15 Pulse Ox 90 08/25/21 09:04 08/24/21 08/25/21 08/25/21 22:59 06:59 14:59 Intake Total 50 / 170 Output Total 1400 / 1400 1100 / 2500 Balance -1350 / -1230 -1100 / -2330 Weight last 48 hrs Weight 53.433 kg Weight 51.936 kg Physical Exam Const: COMMON NORMALS: patient oriented x3 HENMT: COMMON NORMALS: normocephalic and atraumatic HEAD & SCALP: normocephalic and atraumatic Eye: COMMON NORMALS: no scleral icterus GENERAL EYE: appearance normal, both eyes and all related structures Resp: COMMON NORMALS: clear to auscultation bilaterally AUSCULTATION: clear to auscultation bilaterally Cardio: COMMON NORMALS: regular rate, regular rhythm, S1 normal heart sound present, S2 normal heart sound present, No gallops present (Cardio), No murmurs present (Cardio), No rub (Cardio) and Peripheral pulses 2+ throughout RATE: regular rate RHYTHM: regular rhythm HEART SOUNDS: S1 normal heart sound present and S2 normal heart sound present PERIPHERAL PULSES: Peripheral pulses 2+ throughout GI: COMMON NORMALS: Normal to inspection, nondistended, normoactive bowel sounds present, Soft to palpation, non-tender, No hepatosplenomegaly present and no masses AUSCULTATION: Yes normoactive bowel sounds PALPATION: Yes Soft to palpation and Yes No hepatosplenomegaly present RECTAL EXAM: deferred Extremity: OTHER: 1 + b/l l/e pitting edema Neuro: COMMON NORMALS: patient oriented x3 Urinary Catheter Management: Graham Latex Free: Cath Placed During This Visit: yes Reason for Continuing Indwelling Catheter: Accurate Measurement of Urinary Output in Critically Ill Patients Urinary Catheter Date of Insertion: 08/22/21 Urinary Catheter Time of Insertion: 15:25 Data : 08/25/21 02:41 08/25/21 02:41 Micro: Microbiology 08/22/21 13:01 Urine Culture - Final Urine,Clean Catch Corynebacterium species A&P Assessment and plan (1) Acute and chronic respiratory failure with hypoxia: Most likely secondary to acute decompensated diastolic heart failure. BiPAP ventilation. Keep saturation over 88%. DuoNebs every 6 hour, budesonide twice daily. Infectious less likely. Check sputum culture, urine Legionella, bacterial antigen, urinalysis, MRSA swab, COVID-19 swab. Hold off on antibiotics for now. Hold off on steroids for now. Status: Acute (2) CHF (congestive heart failure): Cannot find echo in the system. As per pulmonology note last echocardiogram showed diastolic dysfunction, severe TR and pulmonary artery pressures of 65 to 70 mmHg IV Lasix 40 mg twice daily. Strict input output charting, daily weights. Graham catheterization. Fluid restriction up to 1500 cc. Echocardiogram. Cycle troponins Status: Acute Qualifiers: Heart failure chronicity: acute on chronic Heart failure type: diastolic Qualified Code(s): I50.33 - Acute on chronic diastolic (congestive) heart failure (3) Atrial fibrillation with rapid ventricular response: Currently rapid ventricular response. Increase oral Cardizem dose. Digoxin load. Continue with home dose of metoprolol 25 mg succinate daily. Continue with anticoagulation with Eliquis 5 mg twice daily. 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 fib with RVR, low clinical suspicion for pneumonia. MRSA culture negative Blood culture negative Urine Legionella antigen negative Procalcitonin: 0.05 Chest CTA: ?Extensive ground-glass opacity in the chest bilaterally most pro minent in the mid to lower chest with a few regions of more confluent airspace opacity. There is interlobular septal thickening. 2D echo: Normal left ventricular cavity size.? Mild to moderate left?ventricular hypertrophy.? Ejection fraction 70%.? Grade 2 diastolic dysfunction.? No regional wall motion disturbances. Moderately increased right atrial size.?Moderately increased left atrial size.Structurally normal mitral valve.? There is at least moderate mitral regurgitation.? No mitral stenosis. Structurally normal tricuspid valve. [id number] tricuspid valve regurgitation. Normal right ventricular size and systolic function.? Moderate ?to severe pulmonary hypertension.? Pulmonary artery pressure 70 ?mmHg. Continue: Lasix 40 IV twice daily DuoNebs Budesonide inhaler Supplemental oxygen as needed Intake output charting Daily weight k>4, mg>2 Continue telemetry monitoring A. fib with RVR: Continue Cardizem and metoprolol, continue Eliquis. Stop digoxin loading, serum digoxin level:2 Heart rate is better controlled Severe pulmonary hypertension: Pulmonary follow-up as an outpatient Hypertension: Goal blood pressure less than 140/90 mmHg Continue with home dose of metoprolol. Hold off on losartan for now. CODE STATUS: AND DVT prophylaxis: Eliquis will be sufficient for DVT prophylaxis Attestations Medical Necessity Statement*: Patient needs to be in hospital for the management of respiratory failure. Time Spent in Patient Care: Greater than 35 minutes (>than 50% of time spen t in counselling and/or direct pt care on unit) . 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
--- NOTE | 2021-08-25 12:13 | PC.SOCIAL ---
IMM Update pg 2 of IMM updated and reviewed w/ patient. Copy provided and Copy placed in chart.
--- NOTE | 2021-08-25 12:56 | PC.CHAP ---
Pastoral Care Encounter/Spiritual Assessment Type of Contact [] Declined support services coordinator visit [] Patient/Family/Request visit [] Outpatient visit [] Follow-up visit [] Physician referral [] Code/Alert [x] Routine visit [] Staff referral [] Actively dying [] Patient sleeping [] Family support [] [] Out of room [] Palliative care [] [] Receiving care in room [] Pre-surgical visit [] Trauma [] Long length of stay [] ICU visit [] Other: Relational/Emotional Strength [x] Patient feels connected with others/family/visitors/staff [] Distress [] Loneliness/isolation [] Abandonment Spirituality of Patient x[] Person of Indira [] Attends Sabianist of their Indira [x] Believes in Prayer [] Reads Bible or Hinduism materials [] There are Spiritual issues to be addressed Incident Response Consultant Interventions [x] Prayer [x] Active listening [x] Non-anxious presence x[] Spiritual/emotional support [] Crisis/trauma care [] Spiritual counseling [] Bereavement support [] Provided bereavement packet [] Provided Bible/devotional materials [] Provided toy/stuffed animal, coloring book to patient or family member [] Provided Communion [] Anointing/[place] [] Salvation [x] Completed spiritual assessment [] Other: Impact on Illness or Injury [] Angry [] Fearful [] Anxious [] Often cries [] Exhaustion [] Unable to work [] Unable to attend jain [] Unable to walk/stand [] Unable to read [] Unable to drive [] Unable to eat/drink [] Unable to sleep [] Unable to be with family [] Patient intubated [] Other: Summary Time spent with patient 10 min
[2021-08-25] MEDS: cefTRIAXone 1,000 MG in sodium chloride 0.9% (plus) 50 ML 100 MG IV (17:27)
[2021-08-26] VITALS (20 sets, daily range): BP systolic 100–125; BP diastolic 55–70; PULSE 78–121; RESP 15–25; TEMP 36.4–37.1; O2SAT 89–99
[2021-08-26] MEDS: dilTIAZem 60 mg Tablet PO ×4 (01:31→20:18)
[2021-08-26] MEDS: ipratropium-albuterol 3 mL Neb INHALATION ×4 (02:59→20:25)
[2021-08-26 03:07] LABS: Basophils % 0.2 %; Eosinophils # 0.1 10^3/uL (0.0-0.8); Eosinophils % 0.7 %; Hematocrit 39.4 % (37.0-47.0); Hemoglobin 13.4 g/dL (11.5-15.3); Lymphocytes # 0.4 10^3/uL (0.8-4.8); Lymphocytes % 3.7 %; Mean Corpuscular Hemoglobin 28.6 pg (28.0-34.0); Mean Platelet Volume 8.7 fL (7.4-10.4); Monocytes # 0.7 10^3/uL (0.2-0.9); Neutrophils # 10.11 10^3/uL (1.8-7.7); Neutrophils % 88.9 %; Nucleated Red Blood Cells % 0 %; Platelet Count 296 10^3/cmm (130-400); Red Blood Count 4.69 10^6/uL (4.1-5.3); Red Cell Distribution Width 15.2 % (12.1-15.1); White Blood Count 11.4 10^3/uL (4.0-10.0)
[2021-08-26 03:32] LABS: Anion Gap 14.6 (5-19); Blood Urea Nitrogen 14 mg/dL (8-23); Carbon Dioxide 26 mmol/L (22-29); Chloride 103 mmol/L (98-107); Glucose 116 mg/dL (65-115); Osmolality Calculated 291 mOsm/kg (285-295); Potassium 3.6 mmol/L (3.5-5.1); Sodium 140 mmol/L (136-145)
[2021-08-26] MEDS: budesonide 0.5 mg/2 mL Neb INHALATION ×2 (09:02→20:25)
[2021-08-26] MEDS: apixaban 5 mg Tablet PO ×2 (09:39→17:37)
[2021-08-26] MEDS: pantoprazole DR 40 mg Tablet PO (09:39)
[2021-08-26] MEDS: atorvastatin 40 mg Tablet 20 MG PO (09:39)
[2021-08-26] MEDS: ferrous sulfate EC 325 mg Tablet PO ×2 (09:39→17:36)
[2021-08-26] MEDS: potassium chloride ER 10 mEq Tablet PO ×2 (09:39→17:36)
[2021-08-26] MEDS: FUROsemide 10 mg/mL SDV 4mL 40 MG IVP (09:44)
--- NOTE | 2021-08-26 13:23 | PM.PN ---
Subjective Subjective: Patient was seen and examined this morning.SOB has improved, though she is still requiring 12 Ls oxygen through [facility]. Continue to have robust urine output.B/L L/E Swelling has resolved. Medications: Medication Review Details: Generic Name Dose Route Start Last Admin Trade Name Stevanq PRN Reason Stop Dose Admin Acetaminophen 650 mg 08/22/21 14:42 08/24/21 05:34 Acetaminophen 32 5 Mg Tablet PO 650 mg Q6H PRN Administration Mild/Mod Pain Or Temp >/= 101 Albuterol/Ipratrop ium 3 ml 08/22/21 15:00 08/24/21 07:59 Ipratropium-Albu terol 3 Ml Neb INHALATION 3 ml Q6H.RESPIRATORY S CH Administration Albuterol/Ipratrop ium 3 ml 08/23/21 23:54 08/24/21 00:03 Ipratropium-Albu terol 3 Ml Neb INHALATION 3 ml Q4H.RESPIRATORY P RN Administration SHORTNESS OF JAKOB TH Apixaban 5 mg 08/22/21 18:00 08/24/21 08:17 Apixaban 5 Mg Ta blet PO 5 mg BID EVELIN Administration Atorvastatin Calci um 20 mg 08/23/21 09:00 08/24/21 08:17 Atorvastatin 40 Mg Tablet PO 20 mg DAILY EVELIN Administration Budesonide 0.5 mg 08/22/21 20:00 08/24/21 07:55 Budesonide 0.5 M g/2 Ml Neb INHALATION 0.5 mg BID.RESPIRATORY S CH Administration Diltiazem HCl 90 mg 08/23/21 13:00 08/24/21 08:16 Diltiazem 30 Mg Tablet PO 90 mg QID EVELIN Administration Ferrous Sulfate 325 mg 08/22/21 18:00 08/24/21 08:17 Ferrous Sulfate Ec 325 Mg Tablet PO 325 mg BID EVELIN Administration Furosemide 40 mg 08/22/21 23:00 08/23/21 22:01 Furosemide 10 Mg /Ml Sdv 4ml IVP 40 mg Q12H EVELIN Administration Diltiazem HCl 100 mg/ Dextrose 100 mls @ 0 mls/h r 08/22/21 13:00 08/22/21 21:12 IV Infused .Q0M EVELIN Titration Protocol Per Protocol Ceftriaxone Sodium 1,000 mg/ 50 mls @ 100 mls/ hr 08/22/21 16:45 08/23/21 21:00 Sodium Chloride IV Infused Q24H EVELIN Infusion Protocol Lanolin 1 applic 08/23/21 17:30 08/23/21 17:42 Lanolin Oint 7 G m TOPICAL 1 applic PRN PRN Administration DRYNESS Metoprolol Succina te 25 mg 08/23/21 09:00 08/24/21 08:16 Metoprolol Succi ade Er (24 Hr) 25 Mg Tablet PO 25 mg DAILY EVELIN Administration Pantoprazole Sodiu m 40 mg 08/23/21 09:00 08/24/21 08:[address] 40 Mg Tablet PO 40 mg DAILY EVELIN Administration Potassium Chloride 10 meq 08/22/21 18:00 08/24/21 08:16 Potassium Chlori de Er 10 Meq Table t PO 10 meq BID EVELIN Administration Vitals/I&O/Wt Last Vital Signs Temp 97.9 F 08/26/21 07:54 Pulse 91 08/26/21 12:00 Resp 19 H 08/26/21 12:00 BP 107/65 08/26/21 12:00 Pulse Ox 97 08/26/21 12:00 08/25/21 08/26/21 08/26/21 22:59 06:59 14:59 Intake Total 290 / 290 60 / 350 Output Total 500 / 1900 1650 / 3550 1800 / 1800 Balance -210 / -1610 -1590 / -3200 -1800 / -1800 Weight last 48 hrs Weight 49.64 kg Weight 53.433 kg Physical Exam Const: COMMON NORMALS: patient oriented x3 HENMT: COMMON NORMALS: normocephalic and atraumatic HEAD & SCALP: normocephalic and atraumatic Eye: COMMON NORMALS: no scleral icterus GENERAL EYE: appearance normal, both eyes and all related structures Chest: COMMONS NORMALS: normal inspection of the chest and normal palpation of entire chest wall CHEST: Yes Symmetrical chest wall rise Resp: COMMON NORMALS: clear to auscultation bilaterally EFFORT & INSPECTION: Yes symmetric chest movement AUSCULTATION: clear to auscultation bilaterally Cardio: COMMON NORMALS: regular rate, regular rhythm, S1 normal heart sound present, S2 normal heart sound present, No gallops present (Cardio), No murmurs present (Cardio), No rub (Cardio) and Peripheral pulses 2+ throughout RATE: regular rate RHYTHM: regular rhythm HEART SOUNDS: S1 normal heart sound present and S2 normal heart sound present PERIPHERAL PULSES: Peripheral pulses 2+ throughout GI: COMMON NORMALS: Normal to inspection, nondistended, normoactive bowel sounds present, Soft to palpation, non-tender, No hepatosplenomegaly present and no masses AUSCULTATION: Yes normoactive bowel sounds PALPATION: Yes Soft to palpation and Yes No hepatosplenomegaly present RECTAL EXAM: deferred Neuro: COMMON NORMALS: patient oriented x3 Urinary Catheter Management: Graham Latex Free: Cath Placed During This Visit: yes Reason for Continuing Indwelling Catheter: Acute Urinary Retention or Obstruction Urinary Catheter Date of Insertion: 08/22/21 Urinary Catheter Time of Insertion: 15:25 Data : 08/26/21 02:51 08/26/21 02:51 A&P Assessment and plan (1) Acute and chronic respiratory failure with hypoxia: Most likely secondary to acute decompensated diastolic heart failure. BiPAP ventilation. Keep saturation over 88%. DuoNebs every 6 hour, budesonide twice daily. Infectious less likely. Check sputum culture, urine Legionella, bacterial antigen, urinalysis, MRSA swab, COVID-19 swab. Hold off on antibiotics for now. Hold off on steroids for now. Status: Acute (2) CHF (congestive heart failure): Cannot find echo in the system. As per pulmonology note last echocardiogram showed diastolic dysfunction, severe TR and pulmonary artery pressures of 65 to 70 mmHg IV Lasix 40 mg twice daily. Strict input output charting, daily weights. Graham catheterization. Fluid restriction up to 1500 cc. Echocardiogram. Cycle troponins Status: Acute Qualifiers: Heart failure chronicity: acute on chronic Heart failure type: diastolic Qualified Code(s): I50.33 - Acute on chronic diastolic (congestive) heart failure (3) Atrial fibrillation with rapid ventricular response: Currently rapid ventricular response. Increase oral Cardizem dose. Digoxin load. Continue with home dose of metoprolol 25 mg succinate daily. Continue with anticoagulation with Eliquis 5 mg twice daily. 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 fib with RVR, low clinical suspicion for pneumonia. MRSA culture negative Blood culture negative Urine Legionella antigen negative Procalcitonin: 0.05 Chest CTA: ?Extensive ground-glass opacity in the chest bilaterally most prominent in the mid to lower chest with a few regions of more confluent airspace opacity. There is interlobular septal thickening. 2D echo: Normal left ventricular cavity size.? Mild to moderate left?ventricular hypertrophy.? Ejection fraction 70%.? Grade 2 diastolic dysfunction.? No regional wall motion disturbances. Moderately increased right atrial size.?Moderately increased left atrial size.Structurally normal mitral valve.? There is at least moderate mitral regurgitation.? No mitral stenosis. Structurally normal tricuspid valve. [id number] tricuspid valve regurgitation. Normal right ventricular size and systolic function.? Moderate ?to severe pulmonary hypertension.? Pulmonary artery pressure 70 ?mmHg. Continue: Lasix 40 IV daily DuoNebs Budesonide inhaler Supplemental oxygen as needed Intake output charting Daily weight k>4, mg>2 Continue telemetry monitoring A. fib with RVR: Continue Cardizem continue Eliquis. Stop digoxin loading, serum digoxin level:2 Heart rate is better controlled Severe pulmonary hypertension: Pulmonary follow-up as an outpatient Hypertension: Goal blood pressure less than 140/90 mmHg Continue with home dose of metoprolol. Hold off on losartan for now. CODE STATUS: AND DVT prophylaxis: Eliquis will be sufficient for DVT prophylaxis Attestations Medical Necessity Statement*: Patient needs to be in hospital for the management of decompensated H/F.Need for I.V Diuresis. Time Spent in Patient Care: Greater than 35 minutes (>than 50% of time spent in counselling and/or direct pt care on unit). 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
[2021-08-26] MEDS: cefTRIAXone 1,000 MG in sodium chloride 0.9% (plus) 50 ML 100 MG IV (16:03)
[2021-08-26] MEDS: dilTIAZem 30 mg Tablet PO (17:36)
[2021-08-27] VITALS (17 sets, daily range): BP systolic 101–120; BP diastolic 46–74; PULSE 76–114; RESP 16–27; TEMP 36.6–37.2; O2SAT 88–97
[2021-08-27] MEDS: dilTIAZem 60 mg Tablet PO (01:56)
[2021-08-27] MEDS: ipratropium-albuterol 3 mL Neb INHALATION ×3 (03:00→20:37)
[2021-08-27 04:27] LABS: Basophils % 0.3 %; Eosinophils # 0.1 10^3/uL (0.0-0.8); Eosinophils % 0.6 %; Hematocrit 38.1 % (37.0-47.0); Hemoglobin 13.1 g/dL (11.5-15.3); Lymphocytes # 0.4 10^3/uL (0.8-4.8); Lymphocytes % 2.6 %; Mean Corpuscular HGB Conc 34.4 g/dL (30.0-36.0); Mean Corpuscular Hemoglobin 28.6 pg (28.0-34.0); Mean Corpuscular Volume 83.2 fl (81-99); Mean Platelet Volume 8.7 fL (7.4-10.4); Monocytes # 0.9 10^3/uL (0.2-0.9); Monocytes % 5.8 %; Neutrophils # 13.32 10^3/uL (1.8-7.7); Neutrophils % 90.2 %; Nucleated Red Blood Cells % 0 %; Platelet Count 280 10^3/cmm (130-400); Red Blood Count 4.58 10^6/uL (4.1-5.3); Red Cell Distribution Width 14.8 % (12.1-15.1); White Blood Count 14.8 10^3/uL (4.0-10.0)
[2021-08-27 04:42] LABS: Blood Urea Nitrogen 16 mg/dL (8-23); Calcium 8.4 mg/dL (8.5-10.5); Carbon Dioxide 24 mmol/L (22-29); Chloride 103 mmol/L (98-107); Glucose 124 mg/dL (65-115); Osmolality Calculated 289 mOsm/kg (285-295); Sodium 138 mmol/L (136-145)
[2021-08-27 04:49] LABS: Anion Gap 15.1 (5-19); Potassium 4.1 mmol/L (3.5-5.1)
[2021-08-27] MEDS: FUROsemide 10 mg/mL SDV 4mL 40 MG IVP ×2 (06:07→18:29)
--- NOTE | 2021-08-27 07:00 | XR_ITS ---
WS: [id number] Portable AP semiupright chest, 08/27/2021 Clinical Data: SOB Comparison: Portable chest, 08/25/2021. Findings: The patchy opacities in the right lung show further resolution. No nodules, masses or effus ions are seen. The heart is enlarged. The thoracic aorta shows calcification and tortuosity.. The pul monary vascularity is not increased. No pneumonia or pneumothorax is seen. There is a hiatal hernia b ehind the heart. There is a dextroscoliosis. Monitor leads are on the chest wall. XR/XR chest 1V portable [id number] Impression: 1. Further clearing of patchy opacity in right lung which represents an improve ment in pneumonia. 2. No change in cardiomegaly and atherosclerosis.
[2021-08-27] MEDS: apixaban 5 mg Tablet PO ×2 (09:40→17:39)
[2021-08-27] MEDS: potassium chloride ER 10 mEq Tablet PO ×2 (09:40→17:39)
[2021-08-27] MEDS: atorvastatin 40 mg Tablet 20 MG PO (09:40)
[2021-08-27] MEDS: ferrous sulfate EC 325 mg Tablet PO ×2 (09:40→17:39)
[2021-08-27] MEDS: dilTIAZem ER (24HR) 300 mg Capsule PO (09:40)
[2021-08-27] MEDS: pantoprazole DR 40 mg Tablet PO (09:40)
--- NOTE | 2021-08-27 10:18 | PM.PN ---
Subjective Subjective: Patient was seen and examined this morning.she still have significant desaturation with minimum exertion,and has conversational dypsnea,am xray chest has shown improvement in pulmonary edema.Patient has poor respiratory reserve. Current plan is to continue to titrate the FIO2 Down and continue with I.V Diuresis. At home she uses 3/4 Ls oxygen round the clock. Medications: Medication Review Details: Generic Name Dose Route Start Last Admin Trade Name Freq PRN Reason Stop Dose Admin Acetaminophen 650 mg 08/22/21 14:42 08/24/21 05:34 Acetaminophen 32 5 Mg Tablet PO 650 mg Q6H PRN Administration Mild/Mod Pain Or Temp >/= 101 Albuterol/Ipratrop ium 3 ml 08/22/21 15:00 08/24/21 07:59 Ipratropium-Albu terol 3 Ml Neb INHALATION 3 ml Q6H.RESPIRATORY S CH Administration Albuterol/Ipratrop ium 3 ml 08/23/21 23:54 08/24/21 00:03 Ipratropium-Albu terol 3 Ml Neb INHALATION 3 ml Q4H.RESPIRATORY P RN Administration SHORTNESS OF JAKOB TH Apixaban 5 mg 08/22/21 18:00 08/24/21 08:17 Apixaban 5 Mg Ta blet PO 5 mg BID EVELIN Administration Atorvastatin Calci um 20 mg 08/23/21 09:00 08/24/21 08:17 Atorvastatin 40 Mg Tablet PO 20 mg DAILY EVELIN Administration Budesonide 0.5 mg 08/22/21 20:00 08/24/21 07:55 Budesonide 0.5 M g/2 Ml Neb INHALATION 0.5 mg BID.RESPIRATORY S CH Administration Diltiazem HCl 90 mg 08/23/21 13:00 08/24/21 08:16 Diltiazem 30 Mg Tablet PO 90 mg QID EVELIN Administration Ferrous Sulfate 325 mg 08/22/21 18:00 08/24/21 08:17 Ferrous Sulfate Ec 325 Mg Tablet PO 325 mg BID EVELIN Administration Furosemide 40 mg 08/22/21 23:00 08/23/21 22:01 Furosemide 10 Mg /Ml Sdv 4ml IVP 40 mg Q12H EVELIN Administration Diltiazem HCl 100 mg/ Dextrose 100 mls @ 0 mls/h r 08/22/21 13:00 08/22/21 21:12 IV Infused .Q0M EVELIN Titration Protocol Per Protocol Ceftriaxone Sodium 1,000 mg/ 50 mls @ 100 mls/ hr 08/22/21 16:45 08/23/21 21:00 Sodium Chloride IV Infused Q24H EVELIN Infusion Protocol Lanolin 1 applic 08/23/21 17:30 08/23/21 17:42 Lanolin Oint 7 G m TOPICAL 1 applic PRN PRN Administration DRYNESS Metoprolol Succina te 25 mg 08/23/21 09:00 08/24/21 08:16 Metoprolol Succi ade Er (24 Hr) 25 Mg Tablet PO 25 mg DAILY EVELIN Administration Pantoprazole Sodiu m 40 mg 08/23/21 09:00 08/24/21 08:[address] 40 Mg Tablet PO 40 mg DAILY EVELIN Administration Potassium Chloride 10 meq 08/22/21 18:00 08/24/21 08:16 Potassium Chlori de Er 10 Meq Table t PO 10 meq BID EVELIN Administration Vitals/I&O/Wt Last Vital Signs Temp 98.3 F 08/27/21 08:00 Pulse 114 H 08/27/21 08:34 Resp 21 H 08/27/21 08:34 BP 120/73 08/27/21 08:00 Pulse Ox 88 L 08/27/21 08:34 08/26/21 08/27/21 08/27/21 22:59 06:59 14:59 Intake Total 284 / 284 Output Total 300 / 2100 250 / 2350 1175 / 1175 Balance -16 / -1816 -250 / -2066 -1175 / -1175 Weight last 48 hrs Weight 49.612 kg Weight 49.64 kg Physical Exam Const: COMMON NORMALS: patient oriented x3 HENMT: COMMON NORMALS: normocephalic and atraumatic HEAD & SCALP: normocephalic and atraumatic Eye: COMMON NORMALS: no scleral icterus GENERAL EYE: appearance normal, both eyes and all related structures Chest: COMMONS NORMALS: normal inspection of the chest and normal palpation of entire chest wall CHEST: Yes Symmetrical chest wall rise Resp: COMMON NORMALS: clear to auscultation bilaterally EFFORT & INSPECTION: Yes symmetric chest movement AUSCULTATION: clear to auscultation bilaterally Cardio: COMMON NORMALS: regular rate, regular rhythm, S1 normal heart sound present, S2 normal heart sound present, No gallops present (Cardio), No murmurs present (Cardio), No rub (Cardio) and Peripheral pulses 2+ throughout RATE: regular rate RHYTHM: regular rhythm HEART SOUNDS: S1 normal heart sound present and S2 normal heart sound present PERIPHERAL PULSES: Peripheral pulses 2+ throughout GI: COMMON NORMALS: Normal to inspection, nondistended, normoactive bowel sounds present, Soft to palpation, non-tender, No hepatosplenomegaly present and no masses AUSCULTATION: Yes normoactive bowel sounds PALPATION: Yes Soft to palpation and Yes No hepatosplenomegaly present RECTAL EXAM: deferred Extremity: OTHER: 1 + b/l l/e pitting edema Neuro: COMMON NORMALS: patient oriented x3 Urinary Catheter Management: Graham Latex Free: Cath Placed During This Visit: yes Reason for Continuing Indwelling Catheter: Acute Urinary Retention or Obstruction Urinary Catheter Date of Insertion: 08/22/21 Urinary Catheter Time of Insertion: 15:25 Data : 08/27/21 04:15 08/27/21 04:15 A&P Assessment and plan (1) Acute and chronic respiratory failure with hypoxia: Most likely secondary to acute decompensated diastolic heart failure. BiPAP ventilation. Keep saturation over 88%. DuoNebs every 6 hour, budesonide twice daily. Infectious less likely. Check sputum culture, urine Legionella, bacterial antigen, urinalysis, MRSA swab, COVID-19 swab. Hold off on antibiotics for now. Hold off on steroids for now. Status: Acute (2) CHF (congestive heart failure): Cannot find echo in the system. As per pulmonology note last echocardiogram showed diastolic dysfunction, severe TR and pulmonary artery pressures of 65 to 70 mmHg IV Lasix 40 mg twice daily. Strict input output charting, daily weights. Graham catheterization. Fluid restriction up to 1500 cc. Echocardiogram. Cycle troponins Status: Acute Qualifiers: Heart failure chronicity: acute on chronic Heart failure type: diastolic Qualified Code(s): I50.33 - Acute on chronic diastolic (congestive) heart failure (3) Atrial fibrillation with rapid ventricular response: Currently rapid ventricular response. Increase oral Cardizem dose. Digoxin load. Continue with home dose of metoprolol 25 mg succinate daily. Continue with anticoagulation with Eliquis 5 mg twice daily. 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 fib with RVR, low clinical suspicion for pneumonia. MRSA culture negative Blood culture negative Urine Legionella antigen negative Procalcitonin: 0.05 Chest CTA: ?Extensive ground-glass opacity in the chest bilaterally most prominent in the mid to lower chest with a few regions of more confluent airspace opacity. There is interlobular septal thickening. 2D echo: Normal left ventricular cavity size.? Mild to moderate left?ventricular hypertrophy.? Ejection fraction 70%.? Grade 2 diastolic dysfunction.? No regional wall motion disturbances. Moderately increased right atrial size.?Moderately increased left atrial size.Structurally normal mitral valve.? There is at least moderate mitral regurgitation.?No mitral stenosis. Structurally normal tricuspid valve. [id number] tricuspid valve regurgitation. Normal right ventricular size and systolic function.? Moderate ?to severe pulmonary hypertension.? Pulmonary artery pressure 70 ?mmHg. Continue: Lasix 40 IV daily DuoNebs Budesonide inhaler Supplemental oxygen as needed Intake output charting Daily weight k>4, mg>2 Continue telemetry monitoring A. fib with RVR: Continue Cardizem Continue Metoprolol Tartrate continue Eliquis. Stop digoxin loading, serum digoxin level:2 Severe pulmonary hypertension: Pulmonary follow-up as an outpatient Hypertension: Goal blood pressure less than 140/90 mmHg Continue with home dose of metoprolol. Hold off on losartan for now. CODE STATUS: AND DVT prophylaxis: Not needed she is on Eliquis. Attestations Medical Necessity Statement*: Patient needs to be in hospital for management of respiratory failure. Time Spent in Patient Care: Greater than 35 minutes (>than 50% of time spent in counselling and/or direct pt care on unit). 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
--- NOTE | 2021-08-27 12:34 | PC.NURSE ---
IMM IMM updated with copy of page 2 given to patient. Patient verbalized understanding. Copy in chart timed, dated and initialed.
[2021-08-27] MEDS: cefTRIAXone 1,000 MG in sodium chloride 0.9% (plus) 50 ML 100 MG IV (16:09)
[2021-08-27] MEDS: metoprolol tartrate 25 mg Tablet PO (18:29)
[2021-08-27] MEDS: budesonide 0.5 mg/2 mL Neb INHALATION (20:37)
--- NOTE | 2021-08-27 20:41 | PC.NURSE ---
i reported low 02 88 to nurse
[2021-08-28] VITALS (18 sets, daily range): BP systolic 104–123; BP diastolic 55–78; PULSE 66–114; RESP 16–27; TEMP 36.4–36.9; O2SAT 90–97
[2021-08-28] MEDS: ipratropium-albuterol 3 mL Neb INHALATION ×4 (02:41→21:25)
[2021-08-28] MEDS: FUROsemide 10 mg/mL SDV 4mL 40 MG IVP (05:14)
[2021-08-28] MEDS: atorvastatin 40 mg Tablet 20 MG PO (09:08)
[2021-08-28] MEDS: metoprolol tartrate 25 mg Tablet PO (09:08)
[2021-08-28] MEDS: pantoprazole DR 40 mg Tablet PO (09:08)
[2021-08-28] MEDS: ferrous sulfate EC 325 mg Tablet PO ×2 (09:08→17:12)
[2021-08-28] MEDS: apixaban 5 mg Tablet PO ×2 (09:08→17:12)
[2021-08-28] MEDS: dilTIAZem ER (24HR) 300 mg Capsule PO (09:08)
[2021-08-28] MEDS: potassium chloride ER 10 mEq Tablet PO ×2 (09:09→17:12)
[2021-08-28] MEDS: budesonide 0.5 mg/2 mL Neb INHALATION ×2 (09:24→21:25)
--- NOTE | 2021-08-28 15:56 | PM.PN ---
Subjective Subjective: Patient was seen and examined this morning.was seen sitting in the chair SOB has improved,robust urine output. Medications: Medication Review Details: Generic Name Dose Route Start Last Admin Trade Name Tamara PRN Reason Stop Dose Admin Acetaminophen 650 mg 08/22/21 14:42 08/24/21 05:34 Acetaminophen 32 5 Mg Tablet PO 650 mg Q6H PRN Administration Mild/Mod Pain Or Temp >/= 101 Albuterol/Ipratrop ium 3 ml 08/22/21 15:00 08/24/21 07:59 Ipratropium-Albu terol 3 Ml Neb INHALATION 3 ml Q6H.RESPIRATORY S CH Administration Albuterol/Ipratrop ium 3 ml 08/23/21 23:54 08/24/21 00:03 Ipratropium-Albu terol 3 Ml Neb INHALATION 3 ml Q4H.RESPIRATORY P RN Administration SHORTNESS OF JAKOB TH Apixaban 5 mg 08/22/21 18:00 08/24/21 08:17 Apixaban 5 Mg Ta blet PO 5 mg BID EVELIN Administration Atorvastatin Calci um 20 mg 08/23/21 09:00 08/24/21 08:17 Atorvastatin 40 Mg Tablet PO 20 mg DAILY EVELIN Administration Budesonide 0.5 mg 08/22/21 20:00 08/24/21 07:55 Budesonide 0.5 M g/2 Ml Neb INHALATION 0.5 mg BID.RESPIRATORY S CH Administration Diltiazem HCl 90 mg 08/23/21 13:00 08/24/21 08:16 Diltiazem 30 Mg Tablet PO 90 mg QID EVELIN Administration Ferrous Sulfate 325 mg 08/22/21 18:00 08/24/21 08:17 Ferrous Sulfate Ec 325 Mg Tablet PO 325 mg BID EVELIN Administration Furosemide 40 mg 08/22/21 23:00 08/23/21 22:01 Furosemide 10 Mg /Ml Sdv 4ml IVP 40 mg Q12H EVELIN Administration Diltiazem HCl 100 mg/ Dextrose 100 mls @ 0 mls/h r 08/22/21 13:00 08/22/21 21:12 IV Infused .Q0M EVELIN Titration Protocol Per Protocol Ceftriaxone Sodium 1,000 mg/ 50 mls @ 100 mls/ hr 08/22/21 16:45 08/23/21 21:00 Sodium Chloride IV Infused Q24H EVELIN Infusion Protocol Lanolin 1 applic 07/03/22 17:30 08/23/21 17:42 Lanolin Oint 7 G m TOPICAL 1 applic PRN PRN Administration DRYNESS Metoprolol Succina te 25 mg 08/23/21 09:00 08/24/21 08:16 Metoprolol Succi ade Er (24 Hr) 25 Mg Tablet PO 25 mg DAILY EVELIN Administration Pantoprazole Sodiu m 40 mg 08/23/21 09:00 08/24/21 08:[address] 40 Mg Tablet PO 40 mg DAILY EVELIN Administration Potassium Chloride 10 meq 08/22/21 18:00 08/24/21 08:16 Potassium Chlori de Er 10 Meq Table t PO 10 meq BID EVELIN Administration Vitals/I&O/Wt Last Vital Signs Temp 98.4 F 08/28/21 15:24 Pulse 69 08/28/21 15:24 Resp 24 H 08/28/21 15:24 BP 109/55 08/28/21 15:24 Pulse Ox 93 08/28/21 15:24 08/28/21 08/28/21 08/28/21 06:59 14:59 22:59 Intake Total 700 / 700 Output Total 1200 / 2775 Balance -1200 / -2245 700 / 700 Weight last 48 hrs Weight 49.804 kg Weight 49.612 kg Physical Exam Const: COMMON NORMALS: patient oriented x3 HENMT: COMMON NORMALS: normocephalic and atraumatic HEAD & SCALP: normocephalic and atraumatic Eye: COMMON NORMALS: no scleral icterus GENERAL EYE: appearance normal, both eyes and all related structures Chest: COMMONS NORMALS: normal inspection of the chest and normal palpation of entire chest wall CHEST: Yes Symmetrical chest wall rise Resp: COMMON NORMALS: clear to auscultation bilaterally EFFORT & INSPECTION: Yes symmetric chest movement AUSCULTATION: clear to auscultation bilaterally Cardio: COMMON NORMALS: regular rate, regular rhythm, S1 normal heart sound present, S2 normal heart sound present, No gallops present (Cardio), No murmurs present (Cardio), No rub (Cardio) and Peripheral pulses 2+ throughout RATE: regular rate RHYTHM: regular rhythm HEART SOUNDS: S1 normal heart sound present and S2 normal heart sound present PERIPHERAL PULSES: Peripheral pulses 2+ throughout GI: COMMON NORMALS: Normal to inspection, nondistended, normoactive bowel sounds present, Soft to palpation, non-tender, No hepatosplenomegaly present and no masses AUSCULTATION: Yes normoactive bowel sounds PALPATION: Yes Soft to palpation and Yes No hepatosplenomegaly present RECTAL EXAM: deferred Extremity: OTHER: 1 + b/l l/e pitting edema Neuro: COMMON NORMALS: patient oriented x3 Urinary Catheter Management: Graham Latex Free: Cath Placed During This Visit: yes Reason for Continuing Indwelling Catheter: Acute Urinary Retention or Obstruction Urinary Catheter Date of Insertion: 08/22/21 Urinary Catheter Time of Insertion: 15:25 Data : 08/27/21 04:15 08/27/21 04:15 Micro: Microbiology 08/22/21 13:58 Blood Culture - Final Blood NO GROWTH AFTER 5 DAYS 08/22/21 13:50 Blood Culture - Final Blood NO GROWTH AFTER 5 DAYS A&P Assessment and plan (1) Acute and chronic respiratory failure with hypoxia: Most likely secondary to acute decompensated diastolic heart failure. BiPAP ventilation. Keep saturation over 88%. DuoNebs every 6 hour, budesonide twice daily. Infectious less likely. Check sputum culture, urine Legionella, bacterial antigen, urinalysis, MRSA swab, COVID-19 swab. Hold off on antibiotics for now. Hold off on steroids for now. Status: Acute (2) CHF (congestive heart failure): Cannot find echo in the system. As per pulmonology note last echocardiogram showed diastolic dysfunction, severe TR and pulmonary artery pressures of 65 to 70 mmHg IV Lasix 40 mg twice daily. Strict input output charting, daily weights. Graham catheterization. Fluid restriction up to 1500 cc. Echocardiogram. Cycle troponins Status: Acute Qualifiers: Heart failure chronicity: acute on chronic Heart failure type: diastolic Qualified Code(s): I50.33 - Acute on chronic diastolic (congestive) heart failure (3) Atrial fibrillation with rapid ventricular response: Currently rapid ventricular response. Increase oral Cardizem dose. Digoxin load. Continue with home dose of metoprolol 25 mg succinate daily. Continue with anticoagulation with Eliquis 5 mg twice daily. 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 fib with RVR, low clinical suspicion for pneumonia. MRSA culture negative Blood culture negative Urine Legionella antigen negative Procalcitonin: 0.05 Chest CTA: ?Extensive ground-glass opacity in the chest bilaterally most prominent in the mid to lower chest with a few regions of more confluent airspace opacity. There is interlobular septal thickening. 2D echo: Normal left ventricular cavity size.? Mild to moderate left?ventricular hypertrophy.? Ejection fraction 70%.? Grade 2 diastolic dysfunction.? No regional wall motion disturbances. Moderately increased right atrial size.?Moderately increased left atrial size.Structurally normal mitral valve.? There is at least moderate mitral regurgitation.?No mitral stenosis. Structurally normal tricuspid valve. [id number] tricuspid valve regurgitation. Normal right ventricular size and systolic function.? Moderate ?to severe pulmonary hypertension.? Pulmonary artery pressure 70 ?mmHg. Continue: Lasix 40 IV daily DuoNebs Budesonide inhaler Supplemental oxygen as needed Intake output charting Daily weight k>4, mg>2 Continue telemetry monitoring A. fib with RVR: Continue Cardizem Continue Metoprolol Tartrate continue Eliquis. Stop digoxin loading, serum digoxin level:2 Severe pulmonary hypertension: Pulmonary follow-up as an outpatient Hypertension: Goal blood pressure less than 140/90 mmHg Continue with home dose of metoprolol. Hold off on losartan for now. CODE STATUS: AND DVT prophylaxis: Not needed she is on Eliquis. Attestations Medical Necessity Statement*: Patient needs to be in hospital for the management of respiratory failure. 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
[2021-08-28] MEDS: cefTRIAXone 1,000 MG in sodium chloride 0.9% (plus) 50 ML 100 MG IV (17:09)
[2021-08-28] MEDS: FUROsemide 10 mg/mL SDV 2mL 20 MG IVP (21:40)
[2021-08-28] MEDS: ALPRAZolam 0.5 mg Tablet PO (21:40)
[2021-08-29] VITALS (11 sets, daily range): BP systolic 96–119; BP diastolic 50–77; PULSE 65–104; RESP 16–34; TEMP 36.4–36.8; O2SAT 86–95
[2021-08-29] MEDS: ipratropium-albuterol 3 mL Neb INHALATION ×3 (03:35→14:39)
[2021-08-29 04:16] LABS: Basophils # 0.1 10^3/uL (0.0-0.1); Basophils % 0.4 %; Eosinophils # 0.3 10^3/uL (0.0-0.8); Eosinophils % 2.2 %; Hematocrit 42.3 % (37.0-47.0); Hemoglobin 14.1 g/dL (11.5-15.3); Lymphocytes # 0.5 10^3/uL (0.8-4.8); Lymphocytes % 3.6 %; Mean Corpuscular HGB Conc 33.3 g/dL (30.0-36.0); Mean Corpuscular Hemoglobin 29.3 pg (28.0-34.0); Mean Corpuscular Volume 87.9 fl (81-99); Mean Platelet Volume 8.9 fL (7.4-10.4); Monocytes # 0.9 10^3/uL (0.2-0.9); Neutrophils # 11.16 10^3/uL (1.8-7.7); Neutrophils % 86.4 %; Nucleated Red Blood Cells % 0 %; Platelet Count 310 10^3/cmm (130-400); Red Blood Count 4.81 10^6/uL (4.1-5.3); Red Cell Distribution Width 15.2 % (12.1-15.1); White Blood Count 12.9 10^3/uL (4.0-10.0)
[2021-08-29 04:36] LABS: Anion Gap 13.1 (5-19); Blood Urea Nitrogen 24 mg/dL (8-23); Calcium 8.8 mg/dL (8.5-10.5); Carbon Dioxide 28 mmol/L (22-29); Chloride 99 mmol/L (98-107); Glucose 119 mg/dL (65-115); Osmolality Calculated 287 mOsm/kg (285-295); Potassium 4.1 mmol/L (3.5-5.1); Sodium 136 mmol/L (136-145)
[2021-08-29] MEDS: FUROsemide 10 mg/mL SDV 4mL 40 MG IVP (05:28)
[2021-08-29] MEDS: potassium chloride ER 10 mEq Tablet PO (08:05)
[2021-08-29] MEDS: metoprolol succinate ER (24 HR) 25 mg Tablet PO (08:05)
[2021-08-29] MEDS: pantoprazole DR 40 mg Tablet PO (08:05)
[2021-08-29] MEDS: atorvastatin 40 mg Tablet 20 MG PO (08:05)
[2021-08-29] MEDS: ferrous sulfate EC 325 mg Tablet PO (08:05)
[2021-08-29] MEDS: apixaban 5 mg Tablet PO (08:05)
[2021-08-29] MEDS: dilTIAZem ER (24HR) 300 mg Capsule PO (08:12)
[2021-08-29] MEDS: budesonide 0.5 mg/2 mL Neb INHALATION (08:52)
--- NOTE | 2021-08-29 10:54 | PC.SOCIAL ---
IMM update IMM updated with patient. Verbalized an understanding. Copy Pg 2 provided. Initialled, dated, timed, and placed in chart.
--- NOTE | 2021-08-29 11:05 | PM.DCS ---
Discharge Providers Date of Admission: 08/22/21 11:55 Date of Discharge: August 29, 2021 Attending Provider at Admission: Lon Floyd MD Attending Provider at Discharge: Suman Alarcon MD Primary Care Provider: Elis Julian Diagnoses at Discharge Discharge Diagnosis (1) Acute and chronic respiratory failure with hypoxia: Status: Acute (2) CHF (congestive heart failure): Status: Acute Qualifiers: Heart failure chronicity: acute on chronic Heart failure type: diastolic Qualified Code(s): I50.33 - Acute on chronic diastolic (congestive) heart failure (3) Atrial fibrillation with rapid ventricular response: Status: Acute (4) World Health Organization group 2 pulmonary arterial hypertension: Status: Acute Reason for Visit Reason for Visit: SOB Hospital Course Hospital Course 81 year old female with PMH of group 2 pulmonary hypertension, HFpEF, chronic hypoxic respiratory failure, on home 4 L oxygen, atrial fibrillation, hyperlipidemia admitted with c/o worsening shortness of breath, she was managed for Acute on chronic hypoxic respiratory failure: Multifactorial, likely secondary to decompensated heart failure with preserved ejection fraction, severe pulmonary hypertension, A. fib with RVR, low clinical suspicion for pneumonia.MRSA culture negative Blood culture negative , Urine Legionella antigen negative , Procalcitonin: 0.05 Chest CTA:??Extensive ground-glass opacity in the chest bilaterally most prominent in the mid to lower chest with a few regions of more confluent airspace opacity. There is interlobular septal thickening. 2D echo: Normal left ventricular cavity size.? Mild to moderate left?ventricular hypertrophy.? Ejection fraction 70%.? Grade 2 diastolic dysfunction.? No regional wall motion disturbances. Moderately increased right atrial size.?Moderately increased left atrial size.Structurally normal mitral valve.? There is at least moderate mitral regurgitation.?No mitral stenosis. Structurally normal tricuspid valve. [id number] tricuspid valve regurgitation. Normal right ventricular size and systolic function.? Moderate ?to severe pulmonary hypertension.? Pulmonary artery pressure 70 ?mmHg. She was kept on aggressive I.V Diuresis, fluid restriction, to which she responded well , she was also managed for A.fib with RVR initially she was on Cardizem drip, later she was switched to po cardizem as well as on metoprolol,at the time of discharge H/R was well controlled she was continued on eliquis, for severe pulmonary HTN she will continue to follow pulmonolgy as outpaient,she has been discharged on pendant reservoir on 8ls, she will continue with oral lasix 40 mg po BID and on fluid restriction 1500 cc per day, she has also been discharged on albutrol inhaler as well as budesonide inhaler.Overall she has responded well to above medical management. Physical Exam Const: COMMON NORMALS: patient oriented x3 HENMT: COMMON NORMALS: normocephalic and atraumatic HEAD & SCALP: normocephalic and atraumatic Eye: COMMON NORMALS: no scleral icterus GENERAL EYE: appearance normal, both eyes and all related structures Chest: COMMONS NORMALS: normal inspection of the chest and normal palpation of entire chest wall CHEST: Yes Symmetrical chest wall rise Resp: COMMON NORMALS: clear to auscultation bilaterally EFFORT & INSPECTION: Yes symmetric chest movement AUSCULTATION: clear to auscultation bilaterally Cardio: COMMON NORMALS: regular rate, regular rhythm, S1 normal heart sound present, S2 normal heart sound present, No gallops present (Cardio), No murmurs present (Cardio), No rub (Cardio) and Peripheral pulses 2+ throughout RATE: regular rate RHYTHM: regular rhythm HEART SOUNDS: S1 normal heart sound present and S2 normal heart sound present PERIPHERAL PULSES: Peripheral pulses 2+ throughout GI: COMMON NORMALS: Normal to inspection, nondistended, normoactive bowel sounds present, Soft to palpation, non-tender, No hepatosplenomegaly present and no masses AUSCULTATION: Yes normoactive bowel sounds PALPATION: Yes Soft to palpation and Yes No hepatosplenomegaly present RECTAL EXAM: deferred Extremity: OTHER: 1 + b/l l/e pitting edema Neuro: COMMON NORMALS: patient oriented x3 Urinary Catheter Management: Graham Latex Free: Cath Placed During This Visit: yes Reason for Continuing Indwelling Catheter: Acute Urinary Retention or Obstruction Urinary Catheter Date of Insertion: 08/22/21 Urinary Catheter Time of Insertion: 15:25 Discharge Data Studies Completed and Pending Completed Studies During Hospitalization Category Date Time Status CTA chest [CT angio chest PE protcl [id number]] Urgent Cat Scan 08/22/21 09:12 Completed XR chest 1V portable [id number] Routine Exams 08/25/21 09:06 Completed XR chest 1V portable [id number] Routine Exams 08/27/21 07:00 Completed XR chest 1V portable [id number] Stat Exams 08/22/21 08:03 Completed CV. echo complete* [id number] Routine Ultrasound 08/23/21 12:31 Completed Pending at discharge Category Date Time Status BMP [Basic Metabolic Panel] AM LABS Lab 08/30/21 04:00 Ordered BMP [Basic Metabolic Panel] AM LABS Lab 08/31/21 04:00 Ordered CBC Auto Diff [Complete Blood Count w/Auto] AM LABS Lab 08/30/21 04:00 Ordered CBC Auto Diff [Complete Blood Count w/Auto] AM LABS Lab 08/31/21 04:00 Ordered Sputum Culture and Gram Stain Routine Lab 08/25/21 09:30 Uncollected Radiology Impressions Chest CTA 08/22/21 09:12 IMPRESSION: 1. No pulmonary embolus. 2. Extensive ground-glass opacity in the chest bilaterally most prominent in the mid to lower chest with a few regions of more confluent airspace opacity. There is interlobular septal thickening. Considerations include pulmonary edema, interstitial lung disease or, possibly, pneumonia (including COVID 19 pneumonia). Favor pulmonary edema. 3. Cardiomegaly with small bilateral pleural effusions and coronary artery disease. 4. Mediastinal and bilateral hilar lymphadenopathy. 5. Solid pulmonary nodules measure up to 5.7 mm. As per Fleischner Society 2017 guidelines for follow-up and management of pulmonary nodules: For patients at low risk (minimal or absent history of smoking and of other known risk factors), no routine follow-up. For patient at high risk (history of smoking or of other known risk factors), recommend optional CT at 12 months. 6. Cholelithiasis without definite gallbladder wall thickening. Possible stone in the distal common bile duct measuring 3.5 mm. The common bile duct appears mildly dilated measuring 6.6 mm. Recommend ultrasound of clinically warranted. 7. Indeterminate left renal mass. Recommend nonemergent MRI of the abdomen renal mass protocol with and without contrast to further assess. 8. Coarse calcifications within the proximal abdominal aorta with at least 50% narrowing. The aorta is not opacified. Chest X-Ray 08/27/21 07:00 Impression: 1. Further clearing of patchy opacity in right lung which represents an improvement in pneumonia. 2. No change in cardiomegaly and atherosclerosis. Laboratory Results WBC 12.9 10^3/uL (4.0-10.0) H 08/29/21 03:42 RBC 4.81 10^6/uL (4.1-5.3) 08/29/21 03:42 Hgb 14.1 g/dL (11.5-15.3) 08/29/21 03:42 Hct 42.3 % (37.0-47.0) 08/29/21 03:42 MCV 87.9 fl (81-99) 08/29/21 03:42 MCH 29.3 pg (28.0-34.0) 08/29/21 03:42 MCHC 33.3 g/dL (30.0-36.0) 08/29/21 03:42 RDW 15.2 % (12.1-15.1) H 08/29/21 03:42 Plt Count 310 10^3/cmm (130-400) 08/29/21 03:42 MPV 8.9 fL (7.4-10.4) 08/29/21 03:42 Neut % (Auto) 86.4 % 08/29/21 03:42 Lymph % (Auto) 3.6 % 08/29/21 03:42 Bladen % (Auto) 7.0 % 08/29/21 03:42 Eos % (Auto) 2.2 % 08/29/21 03:42 Baso % (Auto) 0.4 % 08/29/21 03:42 Neut # (Auto) 11.16 10^3/uL (1.8-7.7) H 08/29/21 03:42 Lymph # (Auto) 0.5 10^3/uL (0.8-4.8) L 08/29/21 03:42 Bladen # (Auto) 0.9 10^3/uL (0.2-0.9) 08/29/21 03:42 Eos # (Auto) 0.3 10^3/uL (0.0-0.8) 08/29/21 03:42 Baso # (Auto) 0.1 10^3/uL (0.0-0.1) 08/29/21 03:42 Nucleated RBC % (auto) 0 % 08/29/21 03:42 Nucleated RBCs # 0.0 /100WBC 08/29/21 03:42 D-Dimer 0.46 ug/mIFEU (0-0.59) 08/22/21 09:45 Specimen Type Arterial 08/22/21 08:15 Sample Site Radial, left 08/22/21 08:15 ABG pH 7.50 (7.35-7.45) H 08/22/21 08:15 ABG pCO2 30.3 mmHg (35-45) L 08/22/21 08:15 ABG pO2 89.5 mmHg (80.0-100.0) 08/22/21 08:15 ABG HCO3 23.5 mmol/L (22-26) 08/22/21 08:15 ABG O2 Saturation 98.5 08/22/21 08:15 ABG Base Excess 1.1 mmol/L (-2.0-2.0) 08/22/21 08:15 Aung Test Pos 08/22/21 08:15 A-a O2 Gradient 38.8 mmHg (5-10) H 08/22/21 08:15 Hematocrit 42.3 % (37-47) 08/22/21 08:15 Hgb O2 Saturation 97.5 % (95-100) 08/22/21 08:15 Carboxyhemoglobin 1.0 %THgb (0.4-20.1) 08/22/21 08:15 Methemoglobin 0.0 % (0.4-1.5) L 08/22/21 08:15 Total Hemoglobin 13.8 g/dL (12-16) 08/22/21 08:15 Sodium 144.0 mmol/L (131-143) H 08/22/21 08:15 Potassium 3.7 mmol/L (3.5-5.0) 08/22/21 08:15 Glucose 121.0 mg/dL (70-115) H 08/22/21 08:15 Ionized Calcium 1.2 mmol/L (1.1-1.4) 08/22/21 08:15 O2 Delivery Device Bipap 08/22/21 08:15 FiO2 60.0 % 08/22/21 08:15 Wood Carving Machine Operator ID Cak 08/22/21 08:15 Sodium 136 mmol/L (136-145) 08/29/21 03:42 Potassium 4.1 mmol/L (3.5-5.1) 08/29/21 03:42 Chloride 99 mmol/L (98-107) 08/29/21 03:42 Carbon Dioxide 28 mmol/L (22-29) 08/29/21 03:42 Anion Gap 13.1 (5-19) 08/29/21 03:42 BUN 24 mg/dL (8-23) H 08/29/21 03:42 Creatinine 0.7 mg/dL (0.5-0.9) 08/29/21 03:42 GFR Calculation Not Reportable 08/29/21 03:42 Glucose 119 mg/dL (65-115) H 08/29/21 03:42 Estimat Average Glucose 114 08/23/21 04:15 Hemoglobin A1c 5.6 % (4.0-6.0) 08/23/21 04:15 Calculated Osmolality 287 mOsm/kg (285-295) 08/29/21 03:42 Calcium 8.8 mg/dL (8.5-10.5) 08/29/21 03:42 Phosphorus 4.6 mg/dL (2.5-4.5) H 08/23/21 04:15 Magnesium 2.1 mg/dL (1.7-2.3) 08/23/21 04:15 Total Bilirubin 0.5 mg/dL (0.15-1.2) 08/23/21 04:15 AST 10 U/L (0-32) 08/23/21 04:15 ALT 7 U/L (0-33) 08/23/21 04:15 Alkaline Phosphatase 93 IU/L (35-105) 08/23/21 04:15 Troponin T Baseline 14 ng/L (0-10) H 08/22/21 09:45 NT-Pro-B Natriuret Pep 2132 pg/mL (0-450) H 08/22/21 09:45 Total Protein 6.4 g/dL (6.6-8.7) L 08/23/21 04:15 Albumin 3.6 g/dL (3.5-5.2) 08/23/21 04:15 Globulin 2.8 g/dL (1.3-4.6) 08/23/21 04:15 Triglycerides 36 mg/dL (0-150) 08/23/21 04:15 Cholesterol 82 mg/dL (0-200) 08/23/21 04:15 LDL Cholesterol, Calc 34 mg/dL (50-129) L 08/23/21 04:15 Total VLDL Cholesterol 7 mg/dL (0-30) 08/23/21 04:15 HDL Cholesterol 41 mg/dL (60-100) L 08/23/21 04:15 Cholesterol/HDL Ratio 2.00 mg/dL (0.0-4.40) 08/23/21 04:15 Procalcitonin 0.05 ng/mL (0-0.5) 08/22/21 09:45 TSH 3.93 uIU/mL (0.27-4.20) 08/22/21 09:45 Urine Color Straw (Yellow) 08/22/21 13:01 Urine Appearance Hazy (CLEAR) A 08/22/21 13:01 Urine pH 6.5 (5-7) 08/22/21 13:01 Ur Specific Shorter 1.005 (1.005-1.030) 08/22/21 13:01 Urine Protein Neg (Negative) 08/22/21 13:01 Urine Glucose (UA) Norm (Normal) 08/22/21 13:01 Urine Ketones Negative (Negative) 08/22/21 13:01 Urine Blood 2+ (Negative) H 08/22/21 13:01 Urine Nitrate Negative (Negative) 08/22/21 13:01 Urine Bilirubin Neg (Negative) 08/22/21 13:01 Urine Urobilinogen Norm mg/dL (Negative) 08/22/21 13:01 Ur Leukocyte Esterase 2+ (Negative) H 08/22/21 13:01 Urine RBC 0-4 /hpf (0-2) H 08/22/21 13:01 Urine WBC 25-40 /hpf (0-5) H 08/22/21 13:01 Ur Squamous Epith Cells 5-10 /hpf (0-5) H 08/22/21 13:01 Amorphous Sediment Not Reportable 08/22/21 13:01 Urine Bacteria 4+ /hpf (NONE) H 08/22/21 13:01 Digoxin 2.0 ng/mL (0.6-1.2) H 08/24/21 09:40 Coronavirus 229E (PCR) Not detected (NOT DETECT) 08/22/21 12:25 SARS-CoV-2 (PCR) Not detected (NOT DETECT) 08/22/21 12:25 SARS-CoV-2 Ag (Rapid) Negative (Negative) 08/22/21 08:39 Vitals Last Vital Signs Temp 97.6 F 07/09/22 08:00 Pulse 104 H 08/29/21 08:52 Resp 16 08/29/21 08:52 BP 107/50 08/29/21 08:00 Pulse Ox 86 L 08/29/21 10:32 Discharge Plan Discharge Patient Disposition: Home Health Service Condition: Stable Prescriptions: New Ventolin HFA 90 mcg/actuation HFA aerosol inhaler 1 inh inhalation Q6H PRN (Reason: shortness of breath or wheezing) Qty: 6.7 0RF budesonide 90 mcg/actuation aerosol powdr breath activated 1 inh inhalation BID Qty: 1 0RF Xanax 0.25 mg tablet 0.25 mg PO TID PRN (Reason: anxiety) Qty: 30 0RF Continued losartan 25 mg tablet 25 mg PO DAILY 0RF Eliquis 5 mg tablet 5 mg PO BID 0RF atorvastatin 10 mg tablet 10 mg PO DAILY 0RF potassium chloride 10 mEq capsule, extended release 10 meq PO BID 0RF diltiazem HCl [Tiazac] 180 mg capsule,extended release 24 hr 180 mg PO BID Qty: 180 3RF metoprolol succinate 25 mg tablet extended release 24 hr 25 mg PO DAILY Qty: 90 3RF Mucinex Fast-Max Chest-Congest 100 mg/5 mL Liquid 200 mg PO Q4H PRN (Reason: Congestion) 0RF garlic 500 mg Capsule 500 mg PO DAILY 0RF ferrous sulfate 325 mg (65 mg iron) tablet 325 mg PO BID 0RF Women's Probiotic 25B cell-25B cell-50 mg Capsule 1 cap PO DAILY 0RF furosemide 40 mg tablet 40 mg PO BID 30 Days Qty: 60 3RF Discharge Orders: Discharge Order (Routine); Ordered 08/29/21 Ordered By: Suman Alarcon Other Ambulatory Orders: DME: Oxygen (Order) Location: None Selected Ordered By: Suman Alarcon DME: Wheelchair (Order) Location: None Selected Ordered By: Suman Alarcon Miscellaneous Procedure (Order) Location: None Selected Ordered By: Suman Alarcon [place] [facility] [place] [facility] [place]) [Outside] Elis Julian [Primary Care Provider] - 1 week (Please call Tuesday to schedule a follow up appointment.) Albino Mendoza MD [Physician] - 1 week (Please call Tuesday to shcedule a follow up appointment.) Lore Marrero FNP [Nurse Practitioner] - 1 week (Please call Tuesday to schedule a follow up appointment) Amanda Palma MD [Physician] - 1 month (Please call Tuesday to schedule a follow up appointment. ) Discharge Diet: Cardiac Patient Instructions: Atrial Fibrillation, Albuterol (By breathing), Budesonide (By breathing), Heart Failure (ED), How to Use a Metered-Dose Inhaler (DC), Using Oxygen at Home (GEN), CHF Stoplight, Opioid Safety Discharge Attestations Time Spent in Discharge Care*: greater than 30 min Quality Metrics Clinical Quality Measures [ No reported AMI, CVA or VTE this stay] Coding Level of Care Code Acute Chg FW DC note Exam Detailed Diagnoses Acute and chronic respiratory failure with hypoxia J96.21 CHF (congestive heart failure) I50.33 Heart failure chronicity: acute on chronic Heart failure type: diastolic Atrial fibrillation with rapid ventricular response I48.91 World Health Organization group 2 pulmonary arterial hypertension I27.22
--- NOTE | 2021-08-29 11:45 | PC.NURSE ---
Notified and case mgt that pt requires home health services and request for a dme: wheelchair. notified of the xanax upon discharge for her discharge new meds. he said he will write a rx. notified of the discussion.
--- NOTE | 2021-08-29 16:00 | PC.NURSE ---
Ambulance her to transport pt to home all personal belongings given back to pt and dgtr as well as the pendent nasal cannula tubing. and portable oxygen from [facility].
--- NOTE | 2021-08-29 16:06 | PC.NURSE ---
Discharge to home w/home health services Discharge Note Patient discharged to [facility] via ambulance accompanied by ambulance personnel. Discharge instructions reviewed with patient and/or client account representative dgtr Marsha. Mobile pharmacy medications and/or prescriptions provided. Belongings/home medications returned.
[2021-08-29] MEDS: ALPRAZolam 0.5 mg Tablet PO (16:09)
== END 2021-08-29 16:13 | disposition home health service (06) | DRG 291 ==
LOC: ER 13:18 → MEDSURG 14:25
PROVIDERS: Admitting Provider Student in an Organized Health Care Education/Training Program; Emergency Provider Emergency Medicine; PCP Nurse Practitioner Family; Visit Provider Internal Medicine
DX: I11.0 Hypertensive heart disease with heart failure (principal); I50.33 Acute on chronic diastolic (congestive) heart failure; J96.21 Acute and chronic respiratory failure with hypoxia; I48.20 Chronic atrial fibrillation, unspecified; N39.0 Urinary tract infection, site not specified; Z99.81 Dependence on supplemental oxygen; E78.5 Hyperlipidemia, unspecified; I27.20 Pulmonary hypertension, unspecified; I07.1 Rheumatic tricuspid insufficiency; Z79.01 Long term (current) use of anticoagulants
CPT/HCPCS: 36415; 36600; 51702; 71045; 71275; 80048; 80051; 80053; 80061; 80162; 81001; 82330; 82805; 83036; 83735; 83880; 84100; 84145; 84443; 84484; 85025; 85378; 86403; 87040; 87086; 87426; 87449; 87635; 87641; 93005; 93306; 94640; 94660; 94664; 96365; 96367; 96375; 99291; J0696; J1160; J1940; J2930; J3490; J7626; Q9967

== ENCOUNTER → 2021-09-07 12:52 | Outpatient (BNVA) | payer MEDICARE, SELFPAY | PROVIDERS: PCP Nurse Practitioner Family; Visit Provider Nurse Practitioner Family | DX: I11.0 Hypertensive heart disease with heart failure (principal); I50.32 Chronic diastolic (congestive) heart failure; L03.116 Cellulitis of left lower limb; L03.115 Cellulitis of right lower limb; I48.20 Chronic atrial fibrillation, unspecified; B96.89 Other specified bacterial agents as the cause of diseases classified elsewhere | CPT/HCPCS: 80048; 83880; 85025; 99214 ==

== ENCOUNTER → 2021-09-14 09:44 | Outpatient (BNVA) | payer MEDICARE, SELFPAY | PROVIDERS: PCP Nurse Practitioner Family; Visit Provider Internal Medicine Pulmonary Disease | DX: J96.90 Respiratory failure, unspecified, unspecified whether with hypoxia or hypercapnia (principal); I50.33 Acute on chronic diastolic (congestive) heart failure; I27.22 Pulmonary hypertension due to left heart disease; I10 Essential (primary) hypertension; I48.91 Unspecified atrial fibrillation; M25.641 Stiffness of right hand, not elsewhere classified; M25.642 Stiffness of left hand, not elsewhere classified; Z71.89 Other specified counseling | CPT/HCPCS: 71046; 80053; 85025; 86140; 86200; 99214 ==